=== PATIENT | female | born 1985 | race American Indian/Alaskan Native ===

== ENCOUNTER 2019-06-09 20:51 | Emergency (ER) | payer MEDICAID, OTHER ==
--- NOTE | 2019-06-09 21:14 | Event Note ---
Date: 06/09/19 Medical screening note: 33-year-old female with a history of asthma, possibly lupus, recently moved here from [place], was also apparently , presenting to the ER with multiple complaints Complaint #1, cough, wheezing, shortness of breath, called 911, given nebulizer therapy prior to arrival, lung sounds clear to auscultation bilaterally. Check EKG, x-ray the chest Complaint #2: Abdominal cramping, vaginal bleeding, probable miscarriage. Patient does not have a local TRAIN [employer]RAKEM[employer]. Has not had care. Has been taking Tylenol today with minimal improvement in symptoms. Abdomen soft benign, with no rebound, guarding or peritoneal signs. Check labs, type and screen, obtain transvaginal ultrasound, and reassess.
[2019-06-09 21:41] LABS: Basophils # (Auto) 0.1 K/mm3 (0.0-0.1); Eosinophils # (Auto) 0.1 K/mm3 (0.0-0.4); Eosinophils % (Auto) 2.4 % (0.0-4.3); Hemoglobin 13.7 gm/dl (10.1-14.3); Lymphocytes # (Auto) 1.4 K/mm3 (1.2-5.4); Lymphocytes % (Auto) 26.2 % (13.4-35.0); Mean Corpuscular HGB Conc 33 % (30-34); Mean Corpuscular Volume 93 fl (79-97); Monocytes # (Auto) 0.3 K/mm3 (0.0-0.8); Monocytes % (Auto) 6.1 % (0.0-7.3); Platelet Count 313 K/mm3 (140-440); Red Cell Distribution Width 13.3 % (13.2-15.2)
[2019-06-09 21:51] LABS: INR 0.95 (0.87-1.13)
[2019-06-09 22:02] LABS: BUN/Creatinine Ratio 16; Blood Urea Nitrogen 14 mg/dL (7-17); Hemolysis Index 51
--- NOTE | 2019-06-09 22:53 | Emergency Department Report ---
ED Shortness of Breath HPI - General Chief Complaint: Dyspnea/Respdistress Stated Complaint: ASTHMA Time Seen by Provider: 06/09/19 22:15 Source: patient Mode of arrival: Ambulatory Limitations: No Limitations - History of Present Illness Initial Comments: 33-year-old female with history of asthma presents to ED with complaint of asthma attack and possible miscarriage. Patient states she has run out of her inhaler, reports wheezing over the last couple of days with associated dry cough. Patient denies fever. Patient arrived via ambulance, albuterol nebs, Solu-Medrol, mag sulfate given. Patient states her dyspnea has resolved. She also reports she had a positive test at [facility] a few days ago. Patient states on yesterday she began to have cramping and spotting, mild vaginal bleeding. Patient states she had heavier cramping and vaginal bleeding today. She currently reports bleeding has stopped but cramping has continued. Complaint: "asthma attack" -: This evening Severity: moderate Consistency: now resolved Improves With: bronchodilators Worsens With: exertion Known History Of: asthma Associated Symptoms: cough Treatments Prior to Arrival: bronchodilator - Related Data Home Oxygen Therapy: No Previous Rx's Medication Instructions Recorded Last Taken Type Albuterol Sulfate [Proventil Hfa] 2 puff IH Q4HR PRN #1 hfa.aer.ad 06/10/19 Unknown Rx Naproxen [Naprosyn] 500 mg PO BID #20 tablet 06/10/19 Unknown Rx predniSONE [Deltasone] 50 mg PO QDAY #5 tab 06/10/19 Unknown Rx traMADoL [Ultram] 50 mg PO Q6HR PRN #7 tablet 06/10/19 Unknown Rx Allergies Allergy/AdvReac Type Severity Reaction Status Date / Time No Known Allergies Allergy Unverified 01/16/18 11:41 ED Review of Systems ROS: Stated complaint: ASTHMA Other details as noted in HPI Comment: All other systems reviewed and negative Constitutional: denies: chills, fever Respiratory: cough, wheezing Gastrointestinal: abdominal pain. denies: nausea, vomiting Genitourinary: abnormal menses ED Past Medical Hx - Past Medical History Previous Medical History?: Yes Hx Asthma: Yes Additional medical history: Lupus - Surgical History Past Surgical History?: No - Social History Smoking Status: Never Smoker Substance Use Type: None - Medications Home Medications: Home Medications Medication Instructions Recorded Confirmed Last Taken Type Albuterol Sulfate [Proventil Hfa] 2 puff IH Q4HR PRN #1 hfa.aer.ad 06/10/19 Unknown Rx Naproxen [Naprosyn] 500 mg PO BID #20 tablet 06/10/19 Unknown Rx predniSONE [Deltasone] 50 mg PO QDAY #5 tab 06/10/19 Unknown Rx traMADoL [Ultram] 50 mg PO Q6HR PRN #7 tablet 06/10/19 Unknown Rx ED Physical Exam - General Limitations: No Limitations General appearance: alert, in no apparent distress - Head Head exam: Present: atraumatic, normocephalic - Eye Eye exam: Present: normal appearance, EOMI - ENT ENT exam: Present: mucous membranes moist - Neck Neck exam: Present: normal inspection - Respiratory Respiratory exam: Present: normal lung sounds bilaterally. Absent: respiratory distress - Cardiovascular Cardiovascular Exam: Present: regular rate, normal rhythm - GI/Abdominal GI/Abdominal exam: Present: soft, tenderness (Mild suprapubic). Absent: diste nded - Extremities Exam Extremities exam: Present: normal inspection - Neurological Exam Neurological exam: Present: alert, oriented X3 - Psychiatric Psychiatric exam: Present: normal affect, normal mood - Skin Skin exam: Present: warm, dry, intact, normal color. Absent: rash ED Course Vital Signs 06/09/19 06/09/19 06/09/19 21:29 21:31 21:45 Pulse Rate 80 78 75 Respiratory 18 13 11 L Rate Blood Pressure 131/106 122/68 Blood Pressure 131/106 [Right] O2 Sat by Pulse 99 97 100 Oximetry 06/09/19 06/09/19 06/09/19 22:00 23:20 23:57 Pulse Rate 76 Respiratory 11 L 18 Rate Blood Pressure 122/68 146/78 Blood Pressure [Right] O2 Sat by Pulse 100 100 99 Oximetry 06/10/19 06/10/19 00:00 00:16 Pulse Rate Respiratory Rate Blood Pressure 135/71 135/71 Blood Pressure [Right] O2 Sat by Pulse 84 100 Oximetry ED Medical Decision Making - Lab Data Result diagrams: 06/09/19 21:28 06/09/19 21:28 Critical care attestation.: If time is entered above; I have spent that time in minutes in the direct care of this critically ill patient, excluding procedure time. ED Disposition Clinical Impression: Acute asthma exacerbation, Spontaneous miscarriage Disposition: TO HOME OR SELFCARE Is pt being admited?: No Condition: Stable Instructions: Asthma (ED), Spontaneous Miscarriage (ED) Referrals: PRIMARY CAREMD [Primary Care Provider] - 3-5 Days VENU TAPIA MD [Staff Physician] - 3-5 Days MARTIN MCKEON MD [Staff Physician] - 3-5 Days [facility] [Provider Group] - 3-5 Days Time of Disposition: 00:44
[2019-06-09] MEDS ORDERED: MORPHINE 2 MG/1 ML INJ IV ONE (23:00)
[2019-06-09] MEDS ORDERED: ONDANSETRON 4 MG/2 ML INJ IV ONE (23:00)
--- NOTE | 2019-06-09 23:03 | XRay Report ---
CHEST 2 VIEWS INDICATION / CLINICAL INFORMATION: dyspnea. COMPARISON: None available. FINDINGS: SUPPORT DEVICES: None. HEART / MEDIASTINUM: No significant abnormality. LUNGS / PLEURA: No significant pulmonary or pleural abnormality. No pneumothorax. ADDITIONAL FINDINGS: No significant additional findings. IMPRESSION: 1. No acute findings. No evidence for pneumonia or other acute pulmonary process. Signer Name: Leelee Cr MD Signed: 06/09/2019 10:59 PM Workstation Name: [id number]
--- NOTE | 2019-06-10 00:05 | Ultrasound Report ---
ULTRASOUND OBSTETRIC INDICATION / CLINICAL INFORMATION: miscarriage. Clinical Gestational Age (GA): 5 weeks 3 days TECHNIQUE: Transabdominal. Transvaginal COMPARISON: None available. FINDINGS: No gestational sac is identified within the uterus. The endometrial complex is mildly thickened measu ring 10 mm. The uterus is mildly enlarged measuring 9.8 x 5.3 x 5.9 cm. ADNEXA: Both ovaries are well-visualized and appear unremarkable. FREE FLUID: None. ADDITIONAL FINDINGS: None. IMPRESSION: 1. No evidence of IUP at this time. Signer Name: Leelee Cr MD Signed: 06/10/2019 12:00 AM Workstation Name: [id number]
[2019-06-10 00:18] LABS: Bilirubin,Urine NEG (Negative); Blood,Urine LG (Negative); Color,Urine Red (Yellow); Mucus,Urine FEW /HPF; Urobilinogen,Urine < 2.0 mg/dL (<2.0)
[2019-06-10 00:21] LABS: RBC,Urine > 182.0 /HPF (0.0-6.0)
[2019-06-10 00:25] VITALS: BP 135/71
[2019-06-10] MEDS ORDERED: KETOROLAC 30 MG/1 ML INJ IV ONE (00:39)
== END 2019-06-10 01:56 | disposition home or self-care (01) ==
LOC: ED 20:51
DX: O03.9 Complete or unspecified spontaneous abortion without complication (principal); O99.511 Diseases of the respiratory system complicating pregnancy, first trimester; J45.909 Unspecified asthma, uncomplicated; Z79.899 Other long term (current) drug therapy; Z3A.01 Less than 8 weeks gestation of pregnancy
CPT/HCPCS: 36415; 71046; 76801; 76817; 80048; 81001; 82550; 84702; 85025; 85610; 86900; 86901; 93005; 93010; 96374; 96375; 99284; J1885; J2270; J2405

== ENCOUNTER 2019-07-14 09:36 | Emergency (ER) | payer MEDICAID ==
[2019-07-14] MEDS ORDERED: diphenhydrAMINE 50 MG/ML VIAL IV ONE (10:28)
[2019-07-14] MEDS ORDERED: dexAMETHasone 20 MG/5 ML VIAL IV ONE (10:28)
[2019-07-14] MEDS ORDERED: ONDANSETRON 4 MG/2 ML INJ IV ONE (10:29)
[2019-07-14] MEDS ORDERED: MORPHINE 2 MG/1 ML INJ IV ONE ×2 (10:29→11:36)
--- NOTE | 2019-07-14 10:40 | Emergency Department Report ---
ED General Adult HPI - General Chief complaint: Medical Clearance Stated complaint: LUPUS FLARE UP Time Seen by Provider: 07/14/19 10:17 Source: patient Mode of arrival: Stretcher Limitations: No Limitations - History of Present Illness Initial comments: This is a 33-year-old female who is not in current treatment for lupus. She states this diagnosis was made in [place]. She states that she did not get her prescription for prednisone that was prescribed her last visit here in June for an exacerbation of asthma. This is because it causes "itching". She does not report any allergy to Decadron. She states that she was hospitalized in [place] and the diagnosis of lupus was made. She has had recurrent problems with her joints. She is not under the care of a project coordinator nor taking any medicines for lupus. When asked if the lupus has affected her kidneys in the past she states that it has caused a "kidney infection". The current "lupus flareup" was heralded by swelling in the right wrist and MCP joints. She states that it "moved up to my spine". She describes discomfort in her T-spine and her right shoulder area. She has had some swelling of her hands and wrist. She states this is typical of her lupus flareup. She denies fever or chills. She denies any problems urinating. She has not had any weakness numbness or paresthesias. She states again that she possibly could be although her test was negative in June. It appears that she does not follow-up physicians in general. In any case she is not reporting any other symptoms to include change in urine output, cough, shortness of breath, hea dache, diarrhea or vomiting but does report some nausea. She did not report an allergy to steroids apparently on her previous visit as she was prescribed prednisone. Patient states that when her lupus started to flare up about 3 days ago she "passed out. She states that she was coming home from the grocery store came into the house and had a brief loss of consciousness for seconds essentially. She was laid down on the couch by her roommates. She states this is typical for her to have weakness and an episode like this with her lupus flare. She denies ever being told that she had an alternative diagnosis for syncope. -: Gradual, days(s) Location: back, right, upper extremity Quality: aching Consistency: constant Improves with: none Worsens with: none Associated Symptoms: denies other symptoms, syncope. denies: confusion, chest pain, cough, fever/chills, headaches, loss of appetite, malaise, rash, seizure, shortness of breath, weakness - Related Data Previous Rx's Medication Instructions Recorded Last Taken Type Albuterol Sulfate [Proventil Hfa] 2 puff IH Q4HR PRN #1 hfa.aer.ad 06/10/19 Unknown Rx predniSONE [Deltasone] 50 mg PO QDAY #5 tab 06/10/19 Unknown Rx traMADoL [Ultram] 50 mg PO Q6HR PRN #7 tablet 06/10/19 Unknown Rx HYDROcodone/APAP 5-325 [[place] 1 each PO Q6HR PRN #10 tablet 07/14/19 Unknown Rx 5/325] Naproxen [Naprosyn TAB] 500 mg PO BID #20 tablet 07/14/19 Unknown Rx dexAMETHasone [Decadron] 2 mg PO BID #10 tablet 07/14/19 Unknown Rx Allergies Allergy/AdvReac Type Severity Reaction Status Date / Time prednisone Allergy Hives Verified 07/14/19 09:40 ED Review of Systems ROS: Stated complaint: LUPUS FLARE UP Other details as noted in HPI Constitutional: weakness. denies: chills, fever Eyes: denies: eye pain, eye discharge, vision change ENT: denies: ear pain, throat pain Respiratory: no symptoms reported. denies: cough, shortness of breath, wheezing Cardiovascular: syncope. denies: chest pain, palpitations Endocrine: no symptoms reported Gastrointestinal: nausea. denies: abdominal pain, diarrhea Genitourinary: denies: urgency, dysuria, discharge Musculoskeletal: as per HPI, back pain, joint swelling, arthralgia. denies: myalgia Skin: denies: rash, lesions Neurological: denies: headache, weakness, paresthesias Psychiatric: denies: anxiety, depression Hematological/Lymphatic: denies: easy bleeding, easy bruising ED Past Medical Hx - Past Medical History Previous Medical History?: Yes Hx Asthma: Yes Additional medical history: Lupus - Surgical History Additional Surgical History: - Social History Smoking Status: Never Smoker Substance Use Type: None - Medications Home Medications: Home Medications Medication Instructions Recorded Confirmed Last Taken Type Albuterol Sulfate [Proventil Hfa] 2 puff IH Q4HR PRN #1 hfa.aer.ad 06/10/19 Unknown Rx predniSONE [Deltasone] 50 mg PO QDAY #5 tab 06/10/19 Unknown Rx traMADoL [Ultram] 50 mg PO Q6HR PRN #7 tablet 06/10/19 Unknown Rx HYDROcodone/APAP 5-325 [[place] 1 each PO Q6HR PRN #10 tablet 07/14/19 Unknown Rx 5/325] Naproxen [Naprosyn TAB] 500 mg PO BID #20 tablet 07/14/19 Unknown Rx dexAMETHasone [Decadron] 2 mg PO BID #10 tablet 07/14/19 Unknown Rx ED Physical Exam - General Limitations: No Limitations, Altered Mental Status General appearance: obese - Head Head exam: Present: atraumatic, normocephalic - Eye Eye exam: Present: normal appearance. Absent: scleral icterus - ENT ENT exam: Present: mucous membranes moist - Neck Neck exam: Present: normal inspection. Absent: tenderness, meningismus - Respiratory Respiratory exam: Present: normal lung sounds bilaterally. Absent: respiratory distress - Cardiovascular Cardiovascular Exam: Present: regular rate, normal rhythm. Absent: systolic murmur, diastolic murmur, rubs, gallop - GI/Abdominal GI/Abdominal exam: Present: soft, normal bowel sounds. Absent: distended, tenderness, guarding, rebound, rigid - Extremities Exam Extremities exam: Present: tenderness, other (There is an apparent wrist effusion and swelling of the second and third MCP of the right hand. There is some tenderness on range of motion.). Absent: pedal edema, calf tenderness - Back Exam Back exam: Present: paraspinal tenderness (Mid to upper T-spine area). Absent: CVA tenderness (R), CVA tenderness (L), muscle spasm, vertebral tenderness - Neurological Exam Neurological exam: Present: alert, oriented X3, CN II-XII intact. Absent: motor sensory deficit - Psychiatric Psychiatric exam: Present: normal affect, normal mood - Skin Skin exam: Present: warm, dry, intact, normal color. Absent: rash ED Course Vital Signs 07/14/19 07/14/19 07/14/19 09:44 09:50 10:14 Temperature 98.5 F Pulse Rate 78 76 Respiratory 16 18 Rate Blood Pressure Blood Pressure 175/108 148/89 [Left] O2 Sat by Pulse 100 98 100 Oximetry 07/14/19 07/14/19 10:31 11:24 Temperature Pulse Rate 80 77 Respiratory 16 15 Rate Blood Pressure 148/89 Blood Pressure 141/115 [Left] O2 Sat by Pulse 99 100 Oximetry - Reevaluation(s) Reevaluation #1: Symptoms improved. 07/14/19 12:21 Reevaluation #2: There was no allergic reaction to Decadron. 07/14/19 12:23 ED Medical Decision Making - Lab Data Result diagrams: 07/14/19 10:47 07/14/19 10:47 Laboratory Results - last 24 hr 07/14/19 07/14/19 10:47 10:47 Sodium 139 Potassium 3.9 Chloride 104.1 Carbon Dioxide 20 L Anion Gap 19 BUN 16 Creatinine 0.6 L Estimated GFR > 60 BUN/Creatinine Ratio 27 Glucose 97 Lactic Acid 1.70 Calcium 8.7 Total Bilirubin 0.20 Direct Bilirubin < 0.2 Indirect Bilirubin 0.0 AST 15 ALT 12 Alkaline Phosphatase 84 Total Creatine Kinase 44 CK-MB (CK-2) < 1.0 C-Reactive Protein 0.30 Total Protein 7.4 Albumin 4.0 Albumin/Globulin Ratio 1.2 Laboratory Results - last 24 hr 07/14/19 07/14/19 07/14/19 10:47 10:47 10:47 WBC 7.0 RBC 4.36 Hgb 13.3 Hct 40.3 MCV 93 MCH 31 MCHC 33 RDW 13.5 Plt Count 278 PT INR APTT Sodium 139 Potassium 3.9 Chloride 104.1 Carbon Dioxide 20 L Anion Gap 19 BUN 16 Creatinine 0.6 L Estimated GFR > 60 BUN/Creatinine Ratio 27 Glucose 97 Lactic Acid Calcium 8.7 Total Bilirubin 0.20 Direct Bilirubin < 0.2 Indirect Bilirubin 0.0 AST 15 ALT 12 Alkaline Phosphatase 84 Total Creatine Kinase 44 CK-MB (CK-2) < 1.0 C-Reactive Protein 0.30 Total Protein 7.4 Albumin 4.0 Albumin/Globulin Ratio 1.2 HCG, Qual Negative Urine Color Urine Turbidity Urine pH Ur Specific [place] Urine Protein Urine Glucose (UA) Urine Ketones Urine Blood Urine Nitrite Urine Bilirubin Urine Urobilinogen Ur Leukocyte Esterase Urine WBC (Auto) Urine RBC (Auto) U Epithel Cells (Auto) Urine Mucus 07/14/19 07/14/19 07/14/19 10:47 10:47 Unknown WBC RBC Hgb Hct MCV MCH MCHC RDW Plt Count PT 13.1 INR 0.98 APTT 31.5 Sodium Potassium Chloride Carbon Dioxide Anion Gap BUN Creatinine Estimated GFR BUN/Creatinine Ratio Glucose Lactic Acid 1.70 Calcium Total Bilirubin Direct Bilirubin Indirect Bilirubin AST ALT Alkaline Phosphatase Total Creatine Kinase CK-MB (CK-2) C-Reactive Protein Total Protein Albumin Albumin/Globulin Ratio HCG, Qual Urine Color Yellow Urine Turbidity Clear Urine pH 6.0 Ur Specific [place] 1.019 Urine Protein <15 mg/dl Urine Glucose (UA) Neg Urine Ketones Neg Urine Blood Neg Urine Nitrite Neg Urine Bilirubin Neg Urine Urobilinogen < 2.0 Ur Leukocyte Esterase Neg Urine WBC (Auto) < 1.0 Urine RBC (Auto) < 1.0 U Epithel Cells (Auto) 2.0 Urine Mucus Few Laboratory Results - last 24 hr 07/14/19 07/14/19 07/14/19 10:47 10:47 10:47 WBC 7.0 RBC 4.36 Hgb 13.3 Hct 40.3 MCV 93 MCH 31 MCHC 33 RDW 13.5 Plt Count 278 ESR 9 PT INR APTT Sodium 139 Potassium 3.9 Chloride 104.1 Carbon Dioxide 20 L Anion Gap 19 BUN 16 Creatinine 0.6 L Estimated GFR > 60 BUN/Creatinine Ratio 27 Glucose 97 Lactic Acid Calcium 8.7 Total Bilirubin 0.20 Direct Bilirubin < 0.2 Indirect Bilirubin 0.0 AST 15 ALT 12 Alkaline Phosphatase 84 Total Creatine Kinase 44 CK-MB (CK-2) < 1.0 C-Reactive Protein 0.30 Total Protein 7.4 Albumin 4.0 Albumin/Globulin Ratio 1.2 HCG, Qual Negative Urine Color Urine Turbidity Urine pH Ur Specific [place] Urine Protein Urine Glucose (UA) Urine Ketones Urine Blood Urine Nitrite Urine Bilirubin Urine Urobilinogen Ur Leukocyte Esterase Urine WBC (Auto) Urine RBC (Auto) U Epithel Cells (Auto) Urine Mucus Urine Opiates Screen Urine Methadone Screen Ur Barbiturates Screen Ur Phencyclidine Scrn Ur Amphetamines Screen U Benzodiazepines Scrn 07/14/19 07/14/19 07/14/19 10:47 10:47 Unknown WBC RBC Hgb Hct MCV MCH MCHC RDW Plt Count ESR PT 13.1 INR 0.98 APTT 31.5 Sodium Potassium Chloride Carbon Dioxide Anion Gap BUN Creatinine Estimated GFR BUN/Creatinine Ratio Glucose Lactic Acid 1.70 Calcium Total Bilirubin Direct Bilirubin Indirect Bilirubin AST ALT Alkaline Phosphatase Total Creatine Kinase CK-MB (CK-2) C-Reactive Protein Total Protein Albumin Albumin/Globulin Ratio HCG, Qual Urine Color Yellow Urine Turbidity Clear Urine pH 6.0 Ur Specific [place] 1.019 Urine Protein <15 mg/dl Urine Glucose (UA) Neg Urine Ketones Neg Urine Blood Neg Urine Nitrite Neg Urine Bilirubin Neg Urine Urobilinogen < 2.0 Ur Leukocyte Esterase Neg Urine WBC (Auto) < 1.0 Urine RBC (Auto) < 1.0 U Epithel Cells (Auto) 2.0 Urine Mucus Few Urine Opiates Screen Urine Methadone Screen Ur Barbiturates Screen Ur Phencyclidine Scrn Ur Amphetamines Screen U Benzodiazepines Scrn 07/14/19 Unknown WBC RBC Hgb Hct MCV MCH MCHC RDW Plt Count ESR PT INR APTT Sodium Potassium Chloride Carbon Dioxide Anion Gap BUN Creatinine Estimated GFR BUN/Creatinine Ratio Glucose Lactic Acid Calcium Total Bilirubin Direct Bilirubin Indirect Bilirubin AST ALT Alkaline Phosphatase Total Creatine Kinase CK-MB (CK-2) C-Reactive Protein Total Protein Albumin Albumin/Globulin Ratio HCG, Qual Urine Color Urine Turbidity Urine pH Ur Specific [place] Urine Protein Urine Glucose (UA) Urine Ketones Urine Blood Urine Nitrite Urine Bilirubin Urine Urobilinogen Ur Leukocyte Esterase Urine WBC (Auto) Urine RBC (Auto) U Epithel Cells (Auto) Urine Mucus Urine Opiates Screen Presumptive negative Urine Methadone Screen Presumptive negative Ur Barbiturates Screen Presumptive negative Ur Phencyclidine Scrn Presumptive negative Ur Amphetamines Screen Presumptive negative U Benzodiazepines Scrn Presumptive negative - Medical Decision Making Recheck blood pressure 141/88. Patient told to monitor this. She admits no follow-up on her lupus or primary care since she has been here. She will be pl aced on a short course of Decadron and a nonsteroidal. She is referred to the [place] [facility]. There is no indication for hospitalization at this point. She will be given return criteria. Critical care attestation.: If time is entered above; I have spent that time in minutes in the direct care of this critically ill patient, excluding procedure time. ED Disposition Clinical Impression: SLE exacerbation Disposition: DC-01 TO HOME OR SELFCARE Is pt being admited?: No Does the pt Need Aspirin: No Condition: Stable Additional Instructions: Return to the emergency department any acute change or worsening symptoms. Rx as directed. Return any fever or chills as needed. [facility] with the [facility] is essential. See referral. Prescriptions: dexAMETHasone [Decadron] 2 mg PO BID #10 tablet Naproxen [Naprosyn TAB] 500 mg PO BID #20 tablet HYDROcodone/APAP 5-325 [[place] 5/325] 1 each PO Q6HR PRN #10 tablet PRN Reason: Pain Referrals: PRIMARY CARE, [Primary Care Provider] - 3-5 Days [facility] [Provider Group] - 2-3 Days Time of Disposition: 12:23
[2019-07-14] MEDS ORDERED: SODIUM CHLORIDE 0.9% 1000 ML 1,000 ML IV ONE (10:45)
[2019-07-14 11:21] LABS: Creatine Kinase MB < 1.0 ng/mL (0.0-4.0)
[2019-07-14 11:22] LABS: Alanine Aminotransferase 12 units/L (7-56); BUN/Creatinine Ratio 27; Blood Urea Nitrogen 16 mg/dL (7-17); Calcium 8.7 mg/dL (8.4-10.2); Hemolysis Index 7
[2019-07-14 11:29] LABS: Bilirubin,Direct < 0.2 mg/dL (0-0.2)
[2019-07-14 11:50] LABS: Hematocrit 40.3 % (30.3-42.9); Hemoglobin 13.3 gm/dl (10.1-14.3); Mean Corpuscular HGB Conc 33 % (30-34); Mean Corpuscular Volume 93 fl (79-97); Platelet Count 278 K/mm3 (140-440); Red Blood Count 4.36 M/mm3 (3.65-5.03); Red Cell Distribution Width 13.5 % (13.2-15.2)
[2019-07-14 11:57] LABS: INR 0.98 (0.87-1.13)
[2019-07-14 11:58] LABS: Partial Thromboplastin Time 31.5 Sec. (24.2-36.6)
[2019-07-14 12:03] LABS: Bilirubin,Urine NEG (Negative); Blood,Urine NEG (Negative); Color,Urine Yellow (Yellow); Mucus,Urine FEW /HPF; Protein,Urine <15 mg/dL mg/dL (Negative); RBC,Urine < 1.0 /HPF (0.0-6.0); Urobilinogen,Urine < 2.0 mg/dL (<2.0); WBC,Urine < 1.0 /HPF (0.0-6.0)
[2019-07-14 12:12] LABS: Amphetamine Screen,Urine PRESUMPTIVE NEGATIVE; Benzodiazepines Screen,Urine PRESUMPTIVE NEGATIVE; Methadone Screen,Urine PRESUMPTIVE NEGATIVE; Opiate Screen,Urine PRESUMPTIVE NEGATIVE
[2019-07-14 12:12] LABS: Erythrocyte Sedimentation Rate 9 mm/Hr (0-20)
[2019-07-14] MEDS ORDERED: HYDROcodone/ACETAMINOPHEN 5-325 MG TAB PO ONE (12:25)
[2019-07-14 12:27] LABS: Cannabinoid Screen,Urine PRESUMPTIVE POSITIVE; Cocaine Screen,Urine PRESUMPTIVE POSITIVE
[2019-07-14 12:43] VITALS: BP 147/94
== END 2019-07-14 12:44 | disposition home or self-care (01) ==
LOC: ED 09:36
DX: M32.9 Systemic lupus erythematosus, unspecified (principal); J45.909 Unspecified asthma, uncomplicated
CPT/HCPCS: 36415; 80048; 80076; 80307; 81001; 82140; 82550; 82553; 84703; 85027; 85610; 85652; 85730; 86140; 96374; 96375; 96376; 99284; J1100; J1200; J2270; J2405; J7030

== ENCOUNTER 2019-08-29 08:48 | Emergency (ER) | payer MEDICAID ==
--- NOTE | 2019-08-29 09:26 | Emergency Department Report ---
ED General Adult HPI - General Chief complaint: Pain General Stated complaint: LUPUS FLARE UP PUI?: No Time Seen by Provider: 08/29/19 09:11 Source: patient Mode of arrival: Wheelchair Limitations: No Limitations - History of Present Illness Initial comments: Ms. Stroud is a 34-year-old female with history of SLE and asthma who presents with "lupus flareup". She has pain in her "bones and joints". Pain is severe. Her lupus flare has been treated with steroids successfully in the past. 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 She has recently moved from [place]. Diagnosed with SLE 2 years ago. Gradual onset of pain. Denies fever. Denies cough. Denies shortness of breath. No history of kidney disease. Upon review of electronic medical record, in June and July CBC chemistry both within normal limits without anemia without kidney injury -: Gradual, days(s) (Several days) Location: left, right, upper extremity, lower extremity Quality: aching Consistency: constant Improves with: none Worsens with: none Associated Symptoms: denies other symptoms - Related Data Previous Rx's Medication Instructions Recorded Last Taken Type Albuterol Sulfate [Proventil Hfa] 2 puff IH Q4HR PRN #1 hfa.aer.ad 06/10/19 Unknown Rx predniSONE [Deltasone] 50 mg PO QDAY #5 tab 06/10/19 Unknown Rx traMADoL [Ultram] 50 mg PO Q6HR PRN #7 tablet 06/10/19 Unknown Rx HYDROcodone/APAP 5-325 [[place] 1 each PO Q6HR PRN #10 tablet 07/14/19 Unknown Rx 5/325] Naproxen [Naprosyn TAB] 500 mg PO BID #20 tablet 07/14/19 Unknown Rx dexAMETHasone [Decadron] 2 mg PO BID #10 tablet 07/14/19 Unknown Rx Albuterol INH(or & Nicu Only) 2 puff IH QID PRN #8.5 gram 08/29/19 Unknown Rx [ProAir HFA Inhaler] HYDROcodone/APAP 5-325 [[place] 1 each PO Q6HR PRN #10 tablet 08/29/19 Unknown Rx 5/325] methylPREDNISolone [Medrol 4MG 4 mg PO DAILY #1 tab.ds.pk 08/29/19 Unknown Rx DOSEPAK (21 tabs)] Allergies Allergy/AdvReac Type Severity Reaction Status Date / Time prednisone Allergy Hives Verified 07/14/19 09:40 ED Review of Systems ROS: Stated complaint: LUPUS FLARE UP Other details as noted in HPI Comment: All other systems reviewed and negative Constitutional: denies: fever, malaise Respiratory: denies: cough, shortness of breath Gastrointestinal: denies: abdominal pain, nausea, vomiting Musculoskeletal: myalgia ED Past Medical Hx - Past Medical History Previous Medical History?: Yes Hx Asthma: Yes Additional medical history: Lupus - Surgical History Past Surgical History?: Yes Additional Surgical History: - Social History Smoking Status: Never Smoker Substance Use Type: None - Medications Home Medications: Home Medications Medication Instructions Recorded Confirmed Last Taken Type Albuterol Sulfate [Proventil Hfa] 2 puff IH Q4HR PRN #1 hfa.aer.ad 06/10/19 Unknown Rx predniSONE [Deltasone] 50 mg PO QDAY #5 tab 06/10/19 Unknown Rx traMADoL [Ultram] 50 mg PO Q6HR PRN #7 tablet 06/10/19 Unknown Rx HYDROcodone/APAP 5-325 [[place] 1 each PO Q6HR PRN #10 tablet 07/14/19 Unknown Rx 5/325] Naproxen [Naprosyn TAB] 500 mg PO BID #20 tablet 07/14/19 Unknown Rx dexAMETHasone [Decadron] 2 mg PO BID #10 tablet 07/14/19 Unknown Rx Albuterol INH(or & Nicu Only) 2 puff IH QID PRN #8.5 gram 08/29/19 Unknown Rx [ProAir HFA Inhaler] HYDROcodone/APAP 5-325 [[place] 1 each PO Q6HR PRN #10 tablet 08/29/19 Unknown Rx 5/325] methylPREDNISolone [Medrol 4MG 4 mg PO DAILY #1 tab.ds.pk 08/29/19 Unknown Rx DOSEPAK (21 tabs)] ED Physical Exam - General Limitations: No Limitations General appearance: alert, in no apparent distress - Head Head exam: Present: atraumatic, normocephalic - Eye Eye exam: Present: normal appearance - ENT ENT exam: Present: mucous membranes moist - Neck Neck exam: Present: normal inspection, full ROM - Respiratory Respiratory exam: Present: normal lung sounds bilaterally. Absent: respiratory distress, wheezes, rales, rhonchi - Cardiovascular Cardiovascular Exam: Present: regular rate, normal rhythm, normal heart sounds. Absent: systolic murmur, diastolic murmur, rubs, gallop - GI/Abdominal GI/Abdominal exam: Present: soft. Absent: distended, tenderness, guarding, rebound - Extremities Exam Extremities exam: Present: normal inspection - Back Exam Back exam: Present: normal inspection - Neurological Exam Neurological exam: Present: alert, oriented X3 - Psychiatric Psychiatric exam: Present: normal affect, normal mood - Skin Skin exam: Present: warm, dry, intact, normal color. Absent: rash ED Course Vital Signs 08/29/19 09:03 Temperature 98.4 F Pulse Rate 82 Respiratory 20 Rate Blood Pressure 141/93 O2 Sat by Pulse 98 Oximetry - Reevaluation(s) Reevaluation #1: 08/29/19 09:56 Patient screamed out that she was having asthma attack after receiving medications. On examination she had expiratory wheezing. No urticaria. No tongue or lip swelling. 08/29/19 09:56 08/29/19 09:56 Benadryl albuterol Atrovent ordered. ED Medical Decision Making - Medical Decision Making 1. SLE exacerbation: Patient was treated with IV and p.o. pain medication as well as IV steroids. Prescribed Medrol Dosepak and [place] 2. Acute asthma exacerbation resolved after bronchodilator therapy. Prescribed albuterol MDI. Patient is new to the area from [place]. 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 Critical care attestation.: If time is entered above; I have spent that time in minutes in the direct care of this critically ill patient, excluding procedure time. ED Disposition Clinical Impression: SLE exacerbation, Acute asthma exacerbation Disposition: DC- TO HOME OR SELFCARE Is pt being admited?: No Does the pt Need Aspirin: No Condition: Stable Prescriptions: methylPREDNISolone [Medrol 4MG DOSEPAK (21 tabs)] 4 mg PO DAILY #1 tab.ds.pk HYDROcodone/APAP 5-325 [[place] 5/325] 1 each PO Q6HR PRN #10 tablet PRN Reason: Pain Albuterol INH(or & Nicu Only) [ProAir HFA Inhaler] 2 puff IH QID PRN #8.5 gram PRN Reason: Shortness Of Breath Referrals: MARTIN MCKEON MD [Staff Physician] - 3-5 Days
[2019-08-29] MEDS ORDERED: methylPREDNISolone Sod Succinate 125 MG/2 ML INJ IV ONE (09:27)
[2019-08-29] MEDS ORDERED: MORPHINE 4 MG/1 ML INJ IV ONE ×2 (09:27→12:15)
[2019-08-29] MEDS ORDERED: ONDANSETRON 4 MG/2 ML INJ IV ONE (09:27)
[2019-08-29] MEDS ORDERED: HYDROcodone/ACETAMINOPHEN 5-325 MG TAB PO ONE ×2 (09:27→12:15)
[2019-08-29] MEDS ORDERED: IPRATROPIUM 0.02% NEBU 2.5 ML IH ONE (09:55)
[2019-08-29] MEDS ORDERED: diphenhydrAMINE 50 MG/ML VIAL IV ONE (09:55)
[2019-08-29] MEDS ORDERED: ALBUTEROL 2.5 MG/3 ML NEBU IH ONE (09:55)
[2019-08-29] MEDS ORDERED: diphenhydrAMINE 50 MG/ML VIAL ONE (09:56)
[2019-08-29 13:52] VITALS: BP 111/78
== END 2019-08-29 13:52 | disposition home or self-care (01) ==
LOC: ED 08:48
DX: J45.901 Unspecified asthma with (acute) exacerbation (principal); M32.9 Systemic lupus erythematosus, unspecified; Z98.890 Other specified postprocedural states; Z79.899 Other long term (current) drug therapy; Z88.8 Allergy status to other drugs, medicaments and biological substances
CPT/HCPCS: 94640; 96374; 96375; 96376; 99282; J1200; J2270; J2405; J2930; 94644

== ENCOUNTER 2019-09-07 04:09 | Emergency (ER) | payer MEDICAID ==
[2019-09-07 05:10] LABS: Basophils % (Auto) 0.5 % (0.0-1.8); Eosinophils # (Auto) 0.1 K/mm3 (0.0-0.4); Eosinophils % (Auto) 1.3 % (0.0-4.3); Hematocrit 40.7 % (30.3-42.9); Hemoglobin 13.7 gm/dl (10.1-14.3); Lymphocytes # (Auto) 1.6 K/mm3 (1.2-5.4); Lymphocytes % (Auto) 18.2 % (13.4-35.0); Mean Corpuscular HGB Conc 34 % (30-34); Mean Corpuscular Volume 95 fl (79-97); Monocytes # (Auto) 0.6 K/mm3 (0.0-0.8); Monocytes % (Auto) 7.1 % (0.0-7.3); Platelet Count 316 K/mm3 (140-440); Red Blood Count 4.31 M/mm3 (3.65-5.03); Red Cell Distribution Width 12.3 % (13.2-15.2)
[2019-09-07 06:00] LABS: BUN/Creatinine Ratio 18; Blood Urea Nitrogen 16 mg/dL (7-17); Calcium 9.2 mg/dL (8.4-10.2); Hemolysis Index 101
--- NOTE | 2019-09-07 06:42 | XRay Report ---
CHEST 1 VIEW INDICATION / CLINICAL INFORMATION: Chest Pain. COMPARISON: None available. FINDINGS: SUPPORT DEVICES: None. HEART / MEDIASTINUM: No significant abnormality. LUNGS / PLEURA: No significant pulmonary or pleural abnormality. No pneumothorax. ADDITIONAL FINDINGS: No significant additional findings. IMPRESSION: 1. No acute findings. Signer Name: Jak Naranjo MD Signed: 09/07/2019 6:38 AM Workstation Name: [id number]
[2019-09-07] MEDS ORDERED: ONDANSETRON 4 MG/2 ML INJ IV ONE (07:12)
[2019-09-07] MEDS ORDERED: KETOROLAC 30 MG/1 ML INJ IV ONE (07:12)
[2019-09-07] MEDS ORDERED: fentaNYL 100 MCG/2 ML INJ IV ONE ×2 (07:12→09:22)
--- NOTE | 2019-09-07 07:18 | Emergency Department Report ---
HPI - General Chief Complaint: Pain General PUI?: No Time Seen by Provider: 09/07/19 07:03 - HPI HPI: Room 26 The patient is a 34-year-old female present with a chief complaint of lupus flareup/polyarthralgia. The patient states she presents to the emergency department secondary to having pain in all of her joints x1 day. The patient states yesterday morning she developed left-sided chest pain described as a sharpness that worsened when she takes a deep breath then. Patient states it lasted till 04: 00 this morning and then resolved. Patient currently denies chest pain. Patient gives her joint pain a score of 10/10. ED Past Medical Hx - Past Medical History Previous Medical History?: Yes Hx Hypertension: No (Borderline) Hx Asthma: Yes Additional medical history: Lupus - Surgical History Past Surgical History?: Yes Additional Surgical History: - Family History Family history: no significant - Social History Smoking Status: Never Smoker Substance Use Type: None (Denies illicit drug use) - Medications Home Medications: Home Medications Medication Instructions Recorded Confirmed Last Taken Type Albuterol Sulfate [Proventil Hfa] 2 puff IH Q4HR PRN #1 hfa.aer.ad 06/10/19 Unknown Rx predniSONE [Deltasone] 50 mg PO QDAY #5 tab 06/10/19 Unknown Rx traMADoL [Ultram] 50 mg PO Q6HR PRN #7 tablet 06/10/19 Unknown Rx HYDROcodone/APAP 5-325 [[place] 1 each PO Q6HR PRN #10 tablet 07/14/19 Unknown Rx 5/325] Naproxen [Naprosyn TAB] 500 mg PO BID #20 tablet 07/14/19 Unknown Rx dexAMETHasone [Decadron] 2 mg PO BID #10 tablet 07/14/19 Unknown Rx Albuterol INH(or & Nicu Only) 2 puff IH QID PRN #8.5 gram 08/29/19 Unknown Rx [ProAir HFA Inhaler] HYDROcodone/APAP 5-325 [[place] 1 each PO Q6HR PRN #10 tablet 08/29/19 Unknown Rx 5/325] methylPREDNISolone [Medrol 4MG 4 mg PO DAILY #1 tab.ds.pk 08/29/19 Unknown Rx DOSEPAK (21 tabs)] HYDROcodone/APAP 5-325 [[place] 1 - 2 each PO Q6HR PRN #14 tablet 09/07/19 Unknown Rx 5/325] Ibuprofen [Motrin 800 MG tab] 800 mg PO Q8HR PRN #20 tablet 09/07/19 Unknown Rx ED Review of Systems ROS: Stated complaint: LUPAS PAIN Other details as noted in HPI Constitutional: diaphoresis Respiratory: denies: shortness of breath Cardiovascular: chest pain Endocrine: no symptoms reported Gastrointestinal: nausea. denies: vomiting Musculoskeletal: back pain, arthralgia Physical Exam - Physical Exam Vital Signs: Vital Signs 09/07/19 04:13 Temperature 99.6 F Pulse Rate 87 Respiratory 20 Rate Blood Pressure 122/76 O2 Sat by Pulse 96 Oximetry Physical Exam: GENERAL: The patient is well-developed well-nourished female lying on stretcher appearing to be in mild discomfort. [] HEENT: Normocephalic. Atraumatic. Extraocular motions are intact. Patient has moist mucous membranes. NECK: Supple. Trachea midline CHEST/LUNGS: Clear to auscultation. There is no respiratory distress noted. HEART/CARDIOVASCULAR: Regular. There is no tachycardia. There is no gallop rub or murmur. ABDOMEN: Abdomen is soft, nontender. Patient has normal bowel sounds. There is no abdominal distention. SKIN: There is no rash. There is no edema. There is no diaphoresis. NEURO: The patient is awake, alert, and oriented. The patient is cooperative. The patient has normal speech MUSCULOSKELETAL: There is no evidence of acute injury. ED Course Vital Signs 09/07/19 04:13 Temperature 99.6 F Pulse Rate 87 Respiratory 20 Rate Blood Pressure 122/76 O2 Sat by Pulse 96 Oximetry ED Medical Decision Making - Lab Data Result diagrams: 09/07/19 04:25 09/07/19 04:25 Laboratory Tests 09/07/19 09/07/19 09/07/19 04:25 04:25 05:01 WBC 9.1 RBC 4.31 Hgb 13.7 Hct 40.7 MCV 95 MCH 32 MCHC 34 RDW 12.3 L Plt Count 316 Lymph % (Auto) 18.2 [place] % (Auto) 7.1 Eos % (Auto) 1.3 Baso % (Auto) 0.5 Lymph # 1.6 [place] # 0.6 Eos # 0.1 Baso # 0.0 Seg Neutrophils % 72.9 H Seg Neutrophils # 6.6 D-Dimer Sodium 136 L Potassium 4.3 Chloride 103.9 Carbon Dioxide 15 L Anion Gap 21 BUN 16 Creatinine 0.9 Estimated GFR > 60 BUN/Creatinine Ratio 18 Glucose 97 Calcium 9.2 Troponin T < 0.010 HCG, Qual Negative 09/07/19 09/07/19 09/07/19 07:50 07:50 10:20 WBC RBC Hgb Hct MCV MCH MCHC RDW Plt Count Lymph % (Auto) [place] % (Auto) Eos % (Auto) Baso % (Auto) Lymph # [place] # Eos # Baso # Seg Neutrophils % Seg Neutrophils # D-Dimer 271.11 H Sodium Potassium Chloride Carbon Dioxide Anion Gap BUN Creatinine Estimated GFR BUN/Creatinine Ratio Glucose Calcium Troponin T < 0.010 < 0.010 HCG, Qual - EKG Data -: EKG Interpreted by Me EKG shows normal: sinus rhythm Rate: normal - EKG Data When compared to previous EKG there are: previous EKG unavailable Interpretation: nonspecific ST-T wave krista (T wave inversion in lead III. No ischemic changes seen) - Radiology Data Radiology results: report reviewed (Chest x-ray, CT chest), image reviewed (Chest x-ray, CT chest) interpreted by me: Chest x-ray-no focal infiltrates, no pneumothorax Findings [facility] [address] [place] [address] XRay Report Signed Patient: MASON ORTIZ#: [id number] : 1985 Acct:[id number] Age/Sex: 34 / F ADM Date: 09/07/19 Loc: ED Attending Dr: Ordering Physician: ED MD CHARLA Date of Service: 09/07/19 Procedure(s): XR chest 1V ap Accession Number(s): [id number] cc: ED MD CHARLA Fluoro Time In Minutes: CHEST 1 VIEW INDICATION / CLINICAL INFORMATION: Chest Pain. COMPARISON: None available. FINDINGS: SUPPORT DEVICES: None. HEART / MEDIASTINUM: No significant abnormality. LUNGS / PLEURA: No significant pulmonary or pleural abnormality. No pneumothorax. ADDITIONAL FINDINGS: No significant additional findings. IMPRESSION: 1. No acute findings. Signer Name: Jak Naranjo MD Signed: 09/07/2019 6:38 AM Workstation Name: [id number] Transcribed By: Dictated By: Jak Naranjo MD Electronically Authenticated By: Jak Naranjo MD Signed Date/Time: 09/07/1938 DD/ 6 TD/TT: [facility] [address] [place] [id number] Cat Scan Report Signed Patient: MASON ORTIZ#: [id number] : 1985 Acct:[id number] Age/Sex: 34 / F ADM Date: 09/07/19 Loc: ED Attending Dr: Ordering Physician: AUNG NAILS MD Date of Service: 09/07/19 Procedure(s): CT angio chest Accession Number(s): [id number] cc: AUNG NAILS MD CTA CHEST WITH IV CONTRAST INDICATION / CLINICAL INFORMATION: Chest pain, ple urisy. TECHNIQUE: Axial CT images were obtained through the chest after injection of IV contrast. 3 plane MIP and/or 3D reconstructions were produced. All CT scans at this location are performed using CT dose reduction for [place]ARA by means of automated exposure control. COMPARISON: None available. FINDINGS: PULMONARY ARTERIES: No pulmonary emboli. THORACIC AORTA: No significant abnormality. HEART: No significant abnormality. CORONARY ARTERIES: No significant calcification. PLEURA: No pleural effusion. No pneumothorax. LYMPH NODES: No significant adenopathy. LUNGS: No acute air space or interstitial disease. ADDITIONAL FINDINGS: None. UPPER ABDOMEN: No acute findings. SKELETAL STRUCTURES: No significant osseous abnormality. IMPRESSION: 1. No CT evidence for pulmonary embolism. 2. No acute findings. Signer Name: Hany Mario MD Signed: 09/07/2019 11:55 AM Workstation Name: [id number] Transcribed By: WG Dictated By: Hany Mario MD Electronically Authenticated By: Hany Mario MD Signed Date/Time: 09/07/19 1155 DD/ 1153 TD/TT: - Differential Diagnosis Lupus flare, polyarthralgia, ACS, PE, pericarditis, GERD Critical care attestation.: If time is entered above; I have spent that time in minutes in the direct care of this critically ill patient, excluding procedure time. ED Disposition Clinical Impression: Polyarthralgia, SLE exacerbation Disposition: DC-01 TO HOME OR SELFCARE Is pt being admited?: No Does the pt Need Aspirin: No Condition: Stable Additional Instructions: Return to the emergency department should you develop worsening symptoms, inability to tolerate food or liquids, high fever or any other concerns Prescriptions: Ibuprofen [Motrin 800 MG tab] 800 mg PO Q8HR PRN #20 tablet PRN Reason: Pain, Moderate (4-6) HYDROcodone/APAP 5-325 [[place] 5/325] 1 - 2 each PO Q6HR PRN #14 tablet PRN Reason: Pain Referrals: PRIMARY CAREMD [Primary Care Provider] - 3-5 Days MARTIN MCKEON MD [Staff Physician] - 3-5 Days Time of Disposition: 12:41
[2019-09-07] MEDS ORDERED: HYDROcodone/ACETAMINOPHEN 5-325 MG TAB PO ONE (09:56)
[2019-09-07] MEDS ORDERED: SODIUM CHLORIDE 0.9% 1000 ML 1,000 ML ONE (11:33)
[2019-09-07] MEDS ORDERED: SODIUM CHLORIDE 0.9% 1000 ML 1,000 ML IV ONE (11:42)
--- NOTE | 2019-09-07 11:59 | Cat Scan Report ---
CTA CHEST WITH IV CONTRAST INDICATION / CLINICAL INFORMATION: Chest pain, pleurisy. TECHNIQUE: Axial CT images were obtained through the chest after injection of IV contrast. 3 plane MIP and/or 3D reconstructions were produced. All CT scans at this location are performed using CT dose reduction f or [place]ARA by means of automated exposure control. COMPARISON: None available. FINDINGS: PULMONARY ARTERIES: No pulmonary emboli. THORACIC AORTA: No significant abnormality. HEART: No significant abnormality. CORONARY ARTERIES: No significant calcification. PLEURA: No pleural effusion. No pneumothorax. LYMPH NODES: No significant adenopathy. LUNGS: No acute air space or interstitial disease. ADDITIONAL FINDINGS: None. UPPER ABDOMEN: No acute findings. SKELETAL STRUCTURES: No significant osseous abnormality. IMPRESSION: 1. No CT evidence for pulmonary embolism. 2. No acute findings. Signer Name: Hany Mario MD Signed: 09/07/2019 11:55 AM Workstation Name: [id number]
[2019-09-07 13:25] VITALS: BP 124/72
== END 2019-09-07 13:24 | disposition home or self-care (01) ==
LOC: ED 04:09
DX: M32.9 Systemic lupus erythematosus, unspecified (principal); M25.50 Pain in unspecified joint; R07.89 Other chest pain; I10 Essential (primary) hypertension; J45.909 Unspecified asthma, uncomplicated; Z98.890 Other specified postprocedural states; Z79.1 Long term (current) use of non-steroidal anti-inflammatories (NSAID); Z79.899 Other long term (current) drug therapy; Z88.8 Allergy status to other drugs, medicaments and biological substances
CPT/HCPCS: 36415; 71045; 71275; 80048; 84484; 84703; 85025; 85379; 93005; 96374; 96375; 96376; 99285; J1885; J2405; J3010; J7030; Q9967

== ENCOUNTER 2019-10-01 10:00 | Emergency (ER) | payer MEDICAID | END 2019-10-01 10:01 | disposition left against medical advice (07) | LOC: ED 10:00 | DX: Z53.21 Procedure and treatment not carried out due to patient leaving prior to being seen by health care provider (principal) ==

== ENCOUNTER 2020-03-23 12:50 | Emergency (ER) | payer MEDICAID ==
[2020-03-23 12:59] VITALS: BP 169/109
== END 2020-03-23 12:55 | disposition left against medical advice (07) ==
LOC: ED 12:50
DX: R20.0 Anesthesia of skin (principal); M79.601 Pain in right arm; M79.602 Pain in left arm; F41.9 Anxiety disorder, unspecified; Z53.21 Procedure and treatment not carried out due to patient leaving prior to being seen by health care provider

== ENCOUNTER 2020-11-22 13:32 | Emergency (ER) | payer MEDICAID ==
[2020-11-22 14:07] VITALS: BP 132/96
--- NOTE | 2020-11-28 10:24 | Electrocardiograph Report ---
[facility] Test Date: 2020-11-22 Test Time: 14:17:31 Pat Name: MASON ORTIZ Department: Room: Gender: F Screen Maker: JENNIFER : 1985 Requested By: BRIAN JOHNSON Order Number: [id number] Reading MD: Zi Roland Measurements Intervals [place] Rate: 71 P: 56 OR: 133 QRS: 54 QRSD: 72 T: 46 QT: 393 QTc: 429 Interpretive Statements Sinus rhythm No previous ECG available for comparison Electronically Signed On 11-28-2020 10:24:26 EDT by Zi Roland
== END 2020-11-22 15:06 ==
LOC: ED 13:32
DX: R07.89 Other chest pain (principal); Z53.21 Procedure and treatment not carried out due to patient leaving prior to being seen by health care provider
CPT/HCPCS: 93005

== ENCOUNTER 2020-12-12 15:58 | Emergency (ER) | payer MEDICAID ==
[2020-12-12 16:07] VITALS: BP 121/87
[2020-12-12] MEDS ORDERED: KETOROLAC 60 MG/2 ML INJ IM ONE (16:32)
[2020-12-12] MEDS ORDERED: dexAMETHasone 20 MG/5 ML VIAL IM ONE (16:32)
--- NOTE | 2020-12-12 16:54 | Emergency Department Report ---
ED General Adult HPI - General Chief complaint: Back Pain/Injury Stated complaint: LUPUS FLARE BONES SWOLLEN CANT STAND Time Seen by Provider: 12/12/20 16:27 Source: patient Mode of arrival: Ambulatory Limitations: No Limitations - History of Present Illness Initial comments: Patient is a 35-year-old female presents emergency room complaints of a lupus flare that began last night. She has associated back pain, diffuse joint pain, nausea, vomiting, diarrhea. She states that she typically gets these symptoms during her lupus flare. She denies any fever, shortness of breath, cough, chest pain, abdominal pain, urinary symptoms. She denies any known sick contacts or recent travel. She also has a past medical history of asthma. She states that she has an allergy to prednisone but reports that she is able to take other steroids. She states her last menstrual cycle was 11/21/2020. Severity scale (0 -10): 10 - Related Data Previous Rx's Medication Instructions Recorded Last Taken Type Albuterol Sulfate [Proventil Hfa] 2 puff IH Q4HR PRN #1 hfa.aer.ad 06/10/19 Unknown Rx predniSONE [Deltasone] 50 mg PO QDAY #5 tab 06/10/19 Unknown Rx traMADoL [Ultram] 50 mg PO Q6HR PRN #7 tablet 06/10/19 Unknown Rx HYDROcodone/APAP 5-325 [Marshall 1 each PO Q6HR PRN #10 tablet 07/14/19 Unknown Rx 5/325] Naproxen [Naprosyn TAB] 500 mg PO BID #20 tablet 07/14/19 Unknown Rx dexAMETHasone [Decadron] 2 mg PO BID #10 tablet 07/14/19 Unknown Rx Albuterol Mdi (or & Nicu Only) 2 puff IH QID PRN #8.5 gram 08/29/19 Unknown Rx [ProAir HFA Inhaler] HYDROcodone/APAP 5-325 [Marshall 1 each PO Q6HR PRN #10 tablet 08/29/19 Unknown Rx 5/325] methylPREDNISolone [Medrol 4MG 4 mg PO DAILY #1 tab.ds.pk 08/29/19 Unknown Rx DOSEPAK (21 tabs)] Ibuprofen [Motrin 800 MG tab] 800 mg PO Q8HR PRN #20 tablet 09/07/19 Unknown Rx oxyCODONE /ACETAMINOPHEN [Percocet 1 - 2 tab PO Q6HR PRN #7 tablet 09/07/19 Unknown Rx 5/325] Hyoscyamine Subl [Levsin Sl 0.125 0.125 mg SL Q6HR PRN #8 tab 12/12/20 Unknown Rx TAB] Ibuprofen [Motrin 600 MG tab] 600 mg PO Q8H PRN #20 tablet 12/12/20 Unknown Rx Ondansetron [Zofran Odt] 4 mg PO Q8HR PRN #10 tab.rapdis 12/12/20 Unknown Rx traMADoL [Ultram 50 MG tab] 50 mg PO Q6HR PRN #10 tablet 12/12/20 Unknown Rx Allergies Allergy/AdvReac Type Severity Reaction Status Date / Time prednisone Allergy Hives Verified 07/14/19 09:40 ED Review of Systems ROS: Stated complaint: LUPUS FLARE BONES SWOLLEN CANT STAND Other details as noted in HPI Comment: All other systems reviewed and negative ED Past Medical Hx - Past Medical History Previous Medical History?: Yes Hx Hypertension: No (Borderline) Hx Asthma: Yes Additional medical history: Lupus - Surgical History Past Surgical History?: Yes Additional Surgical History: - Social History Smoking Status: Never Smoker Substance Use Type: None (Denies illicit drug use) - Medications Home Medications: Home Medications Medication Instructions Recorded Confirmed Last Taken Type Albuterol Sulfate [Proventil Hfa] 2 puff IH Q4HR PRN #1 hfa.aer.ad 06/10/19 Unknown Rx predniSONE [Deltasone] 50 mg PO QDAY #5 tab 06/10/19 Unknown Rx traMADoL [Ultram] 50 mg PO Q6HR PRN #7 tablet 06/10/19 Unknown Rx HYDROcodone/APAP 5-325 [Marshall 1 each PO Q6HR PRN #10 tablet 07/14/19 Unknown Rx 5/325] Naproxen [Naprosyn TAB] 500 mg PO BID #20 tablet 07/14/19 Unknown Rx dexAMETHasone [Decadron] 2 mg PO BID #10 tablet 07/14/19 Unknown Rx Albuterol Mdi (or & Nicu Only) 2 puff IH QID PRN #8.5 gram 08/29/19 Unknown Rx [ProAir HFA Inhaler] HYDROcodone/APAP 5-325 [Marshall 1 each PO Q6HR PRN #10 tablet 08/29/19 Unknown Rx 5/325] methylPREDNISolone [Medrol 4MG 4 mg PO DAILY #1 tab.ds.pk 08/29/19 Unknown Rx DOSEPAK (21 tabs)] Ibuprofen [Motrin 800 MG tab] 800 mg PO Q8HR PRN #20 tablet 09/07/19 Unknown Rx oxyCODONE /ACETAMINOPHEN [Percocet 1 - 2 tab PO Q6HR PRN #7 tablet 09/07/19 Unknown Rx 5/325] Hyoscyamine Subl [Levsin Sl 0.125 0.125 mg SL Q6HR PRN #8 tab 12/12/20 Unknown Rx TAB] Ibuprofen [Motrin 600 MG tab] 600 mg PO Q8H PRN #20 tablet 12/12/20 Unknown Rx Ondansetron [Zofran Odt] 4 mg PO Q8HR PRN #10 tab.rapdis 12/12/20 Unknown Rx traMADoL [Ultram 50 MG tab] 50 mg PO Q6HR PRN #10 tablet 12/12/20 Unknown Rx ED Physical Exam - General Limitations: No Limitations General appearance: alert, in no apparent distress - Head Head exam: Present: atraumatic, normocephalic - Eye Eye exam: Present: normal appearance - ENT ENT exam: Present: mucous membranes moist - Neck Neck exam: Present: normal inspection, full ROM. Absent: tenderness, meningismus - Respiratory Respiratory exam: Present: normal lung sounds bilaterally. Absent: respiratory distress, wheezes, rales, rhonchi, stridor, chest wall tenderness, accessory muscle use, decreased breath sounds, prolonged expiratory - Cardiovascular Cardiovascular Exam: Present: regular rate, normal rhythm, normal heart sounds. Absent: systolic murmur, diastolic murmur, rubs, gallop - GI/Abdominal GI/Abdominal exam: Present: soft, normal bowel sounds. Absent: distended, tenderness, guarding, rebound, rigid - Extremities Exam Extremities exam: Present: other (mild diffuse ttp of the joints in the BLE/BUE, no edema, no erythema, no increased warmth, neurovascularly intact throughotu) - Back Exam Back exam: Present: normal inspection, full ROM, paraspinal tenderness (bila teral T-spine and L-spine ttp, no step offs, no deformities, no midline ttp). Absent: vertebral tenderness - Neurological Exam Neurological exam: Present: alert, oriented X3 - Psychiatric Psychiatric exam: Present: normal affect, normal mood - Skin Skin exam: Present: warm, dry, intact ED Course Vital Signs 12/12/20 16:05 Temperature 98.8 F Pulse Rate 89 Respiratory 18 Rate Blood Pressure 121/87 [Right] O2 Sat by Pulse 99 Oximetry ED Medical Decision Making - Lab Data Result diagrams: 12/12/20 16:37 12/12/20 16:37 Lab Results 12/12/20 12/12/20 12/12/20 Range/Units 16:37 16:37 16:37 WBC 7.6 (4.5-11.0) K/mm3 RBC 4.08 (3.65-5.03) M/mm3 Hgb 12.8 (10.1-14.3) gm/dl Hct 38.4 (30.3-42.9) % MCV 94 (79-97) fl MCH 32 (28-32) pg MCHC 33 (30-34) % RDW 11.8 L (13.2-15.2) % Plt Count 287 (140-440) K/mm3 Lymph % (Auto) 14.9 (13.4-35.0) % [place] % (Auto) 5.2 (0.0-7.3) % Eos % (Auto) 0.3 (0.0-4.3) % Baso % (Auto) 0.5 (0.0-1.8) % Lymph # (Auto) 1.1 L (1.2-5.4) K/mm3 [place] # (Auto) 0.4 (0.0-0.8) K/mm3 Eos # (Auto) 0.0 (0.0-0.4) K/mm3 Baso # (Auto) 0.0 (0.0-0.1) K/mm3 Seg Neutrophils % 79.1 H (40.0-70.0) % Seg Neutrophils # 6.0 (1.8-7.7) K/mm3 Sodium 137 (137-145) mmol/L Potassium 3.5 L (3.6-5.0) mmol/L Chloride 103.8 (98-107) mmol/L Carbon Dioxide 23 (22-30) mmol/L Anion Gap 14 mmol/L BUN 10 (7-17) mg/dL Creatinine 0.6 (0.6-1.2) mg/dL Estimated GFR > 60 ml/min BUN/Creatinine Ratio 17 % Glucose 99 (65-100) mg/dL Calcium 8.8 (8.4-10.2) mg/dL Total Bilirubin 0.30 (0.1-1.2) mg/dL AST 13 (5-40) units/L ALT 9 (7-56) units/L Alkaline Phosphatase 82 (35-129) units/L Total Protein 6.9 (6.3-8.2) g/dL Albumin 3.8 L (3.9-5) g/dL Albumin/Globulin Ratio 1.2 % Lipase 16 (13-60) units/L HCG, Qual Negative (Negative) - Medical Decision Making Patient is a 35-year-old female presents emergency room complaints of a lupus flare that began last night. She has associated back pain, diffuse joint pain, nausea, vomiting, diarrhea. She states that she typically gets these symptoms during her lupus flare. She denies any fever, shortness of breath, cough, chest pain, abdominal pain, urinary symptoms. She denies any known sick contacts or recent travel. She also has a past medical history of asthma. She states that she has an allergy to prednisone but reports that she is able to take other steroids. She states her last menstrual cycle was 11/21/2020. vitals are normal. on exam: mild diffuse ttp of the joints in the BLE/BUE, no edema, no erythema, no increased warmth, neurovascularly intact throughout, bilateral T-spine and L- spine ttp, no step offs, no deformities, no midline ttp, no step-offs, no deformities, no focal neuro deficits. Labs are stable. Patient given medications while in the emergency room. She was able to tolerate p.o. intake. Patient states that this is typical of her previous flares. Patient has had no acute trauma, she has no focal neuro deficits, she has no leukocytosis, no clinical signs of infection. Patient given prescription for medications. Advised patient Please take medication as prescribed. Increase your fluid intake. Follow-up with a primary care doctor. Return to emergency room for any new or worsening symptoms. Critical care attestation.: If time is entered above; I have spent that time in minutes in the direct care of this critically ill patient, excluding procedure time. ED Disposition Clinical Impression: Lupus, Nausea vomiting and diarrhea Back pain Qualifiers: Back pain location: low back pain Chronicity: acute Back pain laterality: bilateral Sciatica presence: without sciatica Qualified Code(s): M54.5 - Low back pain Joint pain Qualifiers: Joint pain location: unspecified Qualified Code(s): M25.50 - Pain in unspecified joint Disposition: 01 HOME / SELF CARE / HOMELESS Is pt being admited?: No Does the pt Need Aspirin: No Condition: Stable Instructions: Systemic Lupus Erythematosus, Adult Additional Instructions: Please take medication as prescribed. Increase your fluid intake. Follow-up with a primary care doctor. Return to emergency room for any new or worsening symptoms. Prescriptions: Hyoscyamine Subl [Levsin Sl 0.125 TAB] 0.125 mg SL Q6HR PRN #8 tab PRN Reason: diarrhea Ibuprofen [Motrin 600 MG tab] 600 mg PO Q8H PRN #20 tablet PRN Reason: Pain traMADoL [Ultram 50 MG tab] 50 mg PO Q6HR PRN #10 tablet PRN Reason: Pain , Severe (7-10) Ondansetron [Zofran Odt] 4 mg PO Q8HR PRN #10 tab.rapdis PRN Reason: vomiting Referrals: MARTIN MCKEON MD [Staff Physician] - 3-5 Days [facility] [Provider Group] - 3-5 Days ARELY PASCAL MD [Staff Physician] - 3-5 Days Time of Disposition: 17:39 Print Language: SOUTH KOREAN
[2020-12-12 16:57] LABS: Basophils % (Auto) 0.5 % (0.0-1.8); Eosinophils % (Auto) 0.3 % (0.0-4.3); Hematocrit 38.4 % (30.3-42.9); Hemoglobin 12.8 gm/dl (10.1-14.3); Lymphocytes # (Auto) 1.1 K/mm3 (1.2-5.4); Lymphocytes % (Auto) 14.9 % (13.4-35.0); Mean Corpuscular HGB Conc 33 % (30-34); Mean Corpuscular Volume 94 fl (79-97); Monocytes # (Auto) 0.4 K/mm3 (0.0-0.8); Monocytes % (Auto) 5.2 % (0.0-7.3); Platelet Count 287 K/mm3 (140-440); Red Blood Count 4.08 M/mm3 (3.65-5.03); Red Cell Distribution Width 11.8 % (13.2-15.2)
[2020-12-12 17:13] LABS: Alanine Aminotransferase 9 units/L (7-56); Albumin 3.8 g/dL (3.9-5); Blood Urea Nitrogen 10 mg/dL (7-17); Calcium 8.8 mg/dL (8.4-10.2); Hemolysis Index 5
[2020-12-12 17:29] LABS: BUN/Creatinine Ratio 17
[2020-12-12] MEDS ORDERED: oxyCODONE /ACETAMINOPHEN 5-325MG TAB PO ONE (17:37)
[2020-12-12] MEDS ORDERED: ONDANSETRON 4 MG ODT TAB PO ONE (17:37)
== END 2020-12-12 18:31 | disposition home or self-care (01) ==
LOC: ED 15:58
DX: M32.9 Systemic lupus erythematosus, unspecified (principal); M54.9 Dorsalgia, unspecified; M25.50 Pain in unspecified joint; R11.2 Nausea with vomiting, unspecified; R19.7 Diarrhea, unspecified; J45.909 Unspecified asthma, uncomplicated; R03.0 Elevated blood-pressure reading, without diagnosis of hypertension; Z98.890 Other specified postprocedural states; Z88.8 Allergy status to other drugs, medicaments and biological substances
CPT/HCPCS: 36415; 80053; 83690; 84703; 85025; 96372; 99283; J1100; J1885; Q0162

== ENCOUNTER 2021-01-24 13:28 | Emergency (ER) | payer MEDICAID ==
[2021-01-24] MEDS ORDERED: ONDANSETRON 4 MG/2 ML INJ IV ONE (14:16)
[2021-01-24] MEDS ORDERED: MORPHINE 4 MG/1 ML INJ IV ONE (14:16)
[2021-01-24] MEDS ORDERED: SODIUM CHLORIDE 0.9% 1000 ML 2,000 ML IV ONE (14:16)
[2021-01-24] MEDS ORDERED: dexAMETHasone 20 MG/5 ML VIAL IV ONE (14:18)
--- NOTE | 2021-01-24 14:19 | Emergency Department Report ---
ED General Adult HPI - General Chief complaint: Pain General Stated complaint: LUPUS Time Seen by Provider: 01/24/21 13:54 Source: patient Mode of arrival: Ambulatory Limitations: Physical Limitation - History of Present Illness Initial comments: 35-year-old female presents to the ER today with complaints of flareup to her lupus. Patient states that her lupus flared up this morning. She states that she noticed that her lupus has flared up because she is having pain in all her bones, including her spine and she states that her right side of her body is locked up. She also has been vomiting several times since this morning. She denies any fever or chills. She denies any abdominal pain, diarrhea, UTI symptoms, cough, shortness of breath, wheezing, sore throat or any additional symptoms. She states that she is on ibuprofen and hydrochloric when for her lupus. These are prescribed by her primary care doctor at [facility]. She does not currently have a gastroenterology teacher. She states that lately she has been having a flareup of her lupus every month. She states that the last time she was admitted at [facility] for lupus was sometime last year and is because she went into renal failure. She does admit that she was drinking alcohol last night but she states that she only had 2 glasses of mixed drinks. She denies any illicit drug use. Other than the lupus she denies any other significant past medical history. MD Complaint: LUPUS FLARE UP/BODY PAIN -: Sudden Severity scale (0 -10): 6 - Related Data Previous Rx's Medication Instructions Recorded Last Taken Type Albuterol Sulfate [Proventil Hfa] 2 puff IH Q4HR PRN #1 hfa.aer.ad 06/10/19 Unknown Rx Albuterol Mdi (or & Nicu Only) 2 puff IH QID PRN #8.5 gram 08/29/19 Unknown Rx [ProAir HFA Inhaler] Hyoscyamine Subl [Levsin Sl 0.125 0.125 mg SL Q6HR PRN #8 tab 12/12/20 Unknown Rx TAB] Ondansetron [Zofran ODT TAB] 4 mg PO Q8HR PRN #10 tab.rapdis 01/24/21 Unknown Rx methylPREDNISolone [Medrol 4MG 4 mg PO DAILY #1 tab.ds.pk 01/24/21 Unknown Rx DOSEPAK (21 tabs)] oxyCODONE /ACETAMINOPHEN [Percocet 1 - 2 tab PO Q6HR PRN #7 tablet 01/24/21 Unknown Rx 5/325 mg] Allergies Allergy/AdvReac Type Severity Reaction Status Date / Time prednisone Allergy Hives Verified 01/24/21 17:22 ED Review of Systems ROS: Stated complaint: LUPUS Other details as noted in HPI ED Past Medical Hx - Past Medical History Previous Medical History?: Yes Hx Hypertension: No (Borderline) Hx Asthma: Yes Additional medical history: Lupus - Surgical History Past Surgical History?: Yes Additional Surgical History: - Social History Smoking Status: Never Smoker Substance Use Type: None (Denies illicit drug use) - Medications Home Medications: Home Medications Medication Instructions Recorded Confirmed Last Taken Type Albuterol Sulfate [Proventil Hfa] 2 puff IH Q4HR PRN #1 hfa.aer.ad 06/10/19 Unknown Rx Albuterol Mdi (or & Nicu Only) 2 puff IH QID PRN #8.5 gram 08/29/19 Unknown Rx [ProAir HFA Inhaler] Hyoscyamine Subl [Levsin Sl 0.125 0.125 mg SL Q6HR PRN #8 tab 12/12/20 Unknown Rx TAB] Ondansetron [Zofran ODT TAB] 4 mg PO Q8HR PRN #10 tab.rapdis 01/24/21 Unknown Rx methylPREDNISolone [Medrol 4MG 4 mg PO DAILY #1 tab.ds.pk 01/24/21 Unknown Rx DOSEPAK (21 tabs)] oxyCODONE /ACETAMINOPHEN [Percocet 1 - 2 tab PO Q6HR PRN #7 tablet 01/24/21 Unknown Rx 5/325 mg] ED Physical Exam - General Limitations: Physical Limitation General appearance: alert, in distress, other (Patient appears uncomfortable, in any pain, and actively vomiting in the room) - Head Head exam: Present: atraumatic, normocephalic, normal inspection - Eye Eye exam: Present: normal appearance, PERRL, EOMI Pupils: Present: normal accommodation - ENT ENT exam: Present: normal exam, mucous membranes dry - Neck Neck exam: Present: normal inspection, full ROM - Respiratory Respiratory exam: Present: normal lung sounds bilaterally. Absent: respiratory distress, wheezes, rales, rhonchi, stridor - Cardiovascular Cardiovascular Exam: Present: regular rate, normal rhythm, normal heart sounds - Extremities Exam Extremities exam: Present: other (She does have tenderness to palpation diffusely to her right upper extremity and right lower extremity but there is mild swelling noted about the right wrist, fingers and hands. Pulses bilateral upper extremities equal bilaterally. Sensation intact. Patient is able to move extremities but painful) - Neurological Exam Neurological exam: Present: alert, oriented X3, CN II-XII intact, normal gait - Psychiatric Psychiatric exam: Present: normal affect, normal mood - Skin Skin exam: Present: intact ED Course Vital Signs 01/24/21 01/24/21 01/24/21 13:39 15:37 15:45 Temperature 98.2 F Pulse Rate 82 68 Respiratory 20 Rate Blood Pressure 150/92 136/67 [Right] O2 Sat by Pulse 99 97 Oximetry 01/24/21 17:20 Temperature Pulse Rate 74 Respiratory 17 Rate Blood Pressure 120/91 [Right] O2 Sat by Pulse 97 Oximetry ED Medical Decision Making - Lab Data Result diagrams: 01/24/21 14:37 01/24/21 14:37 - Medical Decision Making All labs reviewed and unremarkable. Patient repeat vital signs have been stable. Patiently currently resting comfortably in the room,and she is currently on her phone. She received IV morphine, Zofran, IV Decadron fluids. She appears to be feeling better, and she does admit to feeling better than when she first came in but she states that she still continues to have back pain. Patient's back exam is unremarkable. She has no saddle anesthesia, no bowel or bladder incontinence, she is ambulatory in the ER. She is currently not toxic or ill- appearing. She has not had any more vomiting since the Zofran. I did order urinalysis, but patient reported that she had just urinated and is unable to give another urine sample and she stated that she does not believe she has a UTI because she is not having symptoms. Informed patient that all her labs are normal and her vital signs are stable. Informed patient at this time that there is no indication for admission to the hospital and we will discharge her home with pain meds and steroids and have her follow-up with her PCP. Patient then stated that she is not comfortable going home, because she has nowhere to go and would rather be admitted. Informed patient that she appears well, vital signs are stable, lab work does not show anything acute, therefore there is no ind ication for admission to the hospital. Informed patient of treatment plan, and recommend that she follows up with her PCP and she can discuss with her PCP referral to rheumatology to better control her lupus. Patient then expressed understanding of instructions and agree with plan. Patient was stable at time of discharge. - Differential Diagnosis Dehydration, renal failure, metabolic abnormality, Critical care attestation.: If time is entered above; I have spent that time in minutes in the direct care of this critically ill patient, excluding procedure time. ED Disposition Clinical Impression: Lupus, Arthralgia, Vomiting Disposition: HOME / SELF CARE / HOMELESS Is pt being admited?: No Does the pt Need Aspirin: No Condition: Stable Instructions: Systemic Lupus Erythematosus, Adult, Nausea and Vomiting, Adult, [id number], Joint Pain, [id number] Additional Instructions: I recommend that you take the Percocet, and the Medrol Dosepak as prescribed. Continue to hydrate by drinking lots of fluids. Take the Zofran as prescribed to help with any nausea or vomiting. I do recommend following up with your primary care doctor next week, and discussing with your primary care doctor about referring you to a gastroenterology teacher to better control your lupus. Return to the ER if at any point your symptoms worsens or changes. Prescriptions: methylPREDNISolone [Medrol 4MG DOSEPAK (21 tabs)] 4 mg PO DAILY #1 tab.ds.pk oxyCODONE /ACETAMINOPHEN [Percocet 5/325 mg] 1 - 2 tab PO Q6HR PRN #7 tablet PRN Reason: Pain Ondansetron [Zofran ODT TAB] 4 mg PO Q8HR PRN #10 tab.rapdis PRN Reason: vomiting Referrals: PRIMARY MD DEJON [Primary Care Provider] - 3-5 Days MARTIN MCKEON MD [Staff Physician] - 3-5 Days [facility] [Provider Group] - 3-5 Days Forms: Work/School Release Form(ED) Time of Disposition: 17:56 Print Language: KINYARWANDA
[2021-01-24 14:54] LABS: Basophils # (Auto) 0.1 K/mm3 (0.0-0.1); Eosinophils # (Auto) 0.1 K/mm3 (0.0-0.4); Hematocrit 36.2 % (30.3-42.9); Hemoglobin 12.3 gm/dl (10.1-14.3); Lymphocytes # (Auto) 1.2 K/mm3 (1.2-5.4); Lymphocytes % (Auto) 20.8 % (13.4-35.0); Mean Corpuscular HGB Conc 34 % (30-34); Mean Corpuscular Volume 94 fl (79-97); Monocytes # (Auto) 0.4 K/mm3 (0.0-0.8); Monocytes % (Auto) 7.3 % (0.0-7.3); Platelet Count 285 K/mm3 (140-440); Red Blood Count 3.87 M/mm3 (3.65-5.03); Red Cell Distribution Width 11.6 % (13.2-15.2)
[2021-01-24 15:11] LABS: Alanine Aminotransferase 10 units/L (7-56); Albumin 3.8 g/dL (3.9-5); Blood Urea Nitrogen 8 mg/dL (7-17); Calcium 8.2 mg/dL (8.4-10.2); Hemolysis Index 6
[2021-01-24 15:12] LABS: BUN/Creatinine Ratio 13
[2021-01-24 17:24] VITALS: BP 120/91
[2021-01-24] MEDS ORDERED: oxyCODONE /ACETAMINOPHEN 5-325MG TAB PO ONE (17:27)
== END 2021-01-24 18:43 | disposition home or self-care (01) ==
LOC: ED 13:28
DX: M32.9 Systemic lupus erythematosus, unspecified (principal); R11.10 Vomiting, unspecified; M25.50 Pain in unspecified joint; J45.909 Unspecified asthma, uncomplicated; Z98.890 Other specified postprocedural states; Z88.8 Allergy status to other drugs, medicaments and biological substances
CPT/HCPCS: 36415; 80053; 83690; 83735; 84703; 85025; 96361; 96374; 96375; 99283; J1100; J2270; J2405; J7030

== ENCOUNTER 2021-04-09 05:13 | Emergency (ER) | payer MEDICAID ==
[2021-04-09 08:53] LABS: Basophils # (Auto) 0.1 K/mm3 (0.0-0.1); Hematocrit 39.3 % (30.3-42.9); Hemoglobin 12.9 gm/dl (10.1-14.3); Lymphocytes # (Auto) 1.2 K/mm3 (1.2-5.4); Lymphocytes % (Auto) 19.6 % (13.4-35.0); Mean Corpuscular HGB Conc 33 % (30-34); Mean Corpuscular Volume 95 fl (79-97); Monocytes % (Auto) 8.3 % (0.0-7.3); Platelet Count 323 K/mm3 (140-440); Red Blood Count 4.12 M/mm3 (3.65-5.03)
[2021-04-09 09:03] LABS: Blood Urea Nitrogen 8 mg/dL (7-17); Calcium 9.5 mg/dL (8.4-10.2); Hemolysis Index 3
[2021-04-09 09:12] LABS: BUN/Creatinine Ratio 11
--- NOTE | 2021-04-09 09:37 | Consultation ---
History of Present Illness - Reason for Consult Consult date: 04/09/21 Reason for consult: psychosis - History of Present Psychiatric Illness The patient was seen today. She is known to me from a recent visit. She is manic. The patient is delusional and bizarre. She is singing and talking loudly. The patient says "I'm crazy and been running around with no sleep." She says "my kids father came to destroy everything I had. They sent him to destroy me." The patient says she hasn't seen a psychiatrist in a long time, but states "every time I'm at peace they send someone to destroy me." When asking the patient was she SI/HI. She says "I brought myself here to keep from doing either one of those." She denies hallucinations of any kind. PAST PSYCHIATRIC HISTORY: Diagnose: Borderline personality disorder Suicide attempts or Self-harm behavior: Yes Prior psychiatric hospitalizations: Yes Substance Abuse history: Cocaine Previous psychiatric medications tried: could not recall Outpatient treatment: Unknown PAST MEDICAL HISTORY: unknown Family Psychiatric History: None reported or documented SOCIAL HISTORY Marital Status: Living Arrangements: Employment Status: Self employed Access to guns/weapons: Denies Education: History of Abuse: Denies Legal History: Denies REVIEW OF SYSTEMS Constitutional: Negative for weight loss ENT: Negative for stridor Respiratory: Negative for cough or hemoptysis All other systems reviewed and are negative MENTAL STATUS EXAMINATION General Appearance and Behavior: Age appropriate, good hygiene, wearing appropriate clothes. cooperative Cooperation: Cooperative Psychomotor Behavior: Psychomotor normal Mood: elevated Affect and affective range: laughing inappropriately Thought Process: illogical Thought Content: delusions Speech: loud Suicidal Ideation: Yes Homicidal Ideation: Yes Hallucinations: Denies Delusions: None elicited Impulse Control: Poor Insight and Judgment: Limited insight and poor judgment Memory: Limited Attention: attentive Orientation: a/o x 3 Assessment (1) Psychosis Treatment Plan 1013 Olanzapine 5mg po daily Depakote DR 125mg po BID Trazodone 50mg po qhs Sitter: per primary Medical: per primary Disposition: Recommend acute psychiatric inpatient treatment Will follow. Thanks Case staffed with Dr. Lion Medications and Allergies Allergies Allergy/AdvReac Type Severity Reaction Status Date / Time prednisone Allergy Hives Verified 03/23/21 20:15 Home Medications Medication Instructions Recorded Confirmed Last Taken Type Albuterol Sulfate [Proventil Hfa] 2 puff IH Q4HR PRN #1 hfa.aer.ad 06/10/19 03/25/21 4 Weeks Ago Rx ~02/25/21 Hydroxychloroquine [Plaquenil] 200 mg PO BID 03/25/21 03/25/21 03/24/21 History Ibuprofen [Motrin 800 MG tab] 800 mg PO Q8HR PRN 7 Days #21 03/25/21 Unknown Rx tablet oxyCODONE /ACETAMINOPHEN [Percocet 2 tab PO Q6H PRN 5 Days #40 tablet 03/25/21 Unknown Rx 5/325 mg] Mental Status Exam - Vital signs Last Vital Signs Temp 98.1 F 04/09/21 05:18 Pulse 98 H 04/09/21 05:18 Resp 16 04/09/21 05:18 BP 125/90 04/09/21 05:18 Pulse Ox 100 04/09/21 05:18 Results Result Diagrams: 04/09/21 08:25 04/09/21 08:25 Abnormal lab results 04/09/21 04/09/21 04/09/21 Range/Units 08:25 08:25 08:25 RDW 12.0 L (13.2-15.2) % [place] % (Auto) 8.3 H (0.0-7.3) % Seg Neutrophils % 70.2 H (40.0-70.0) % Potassium 3.5 L (3.6-5.0) mmol/L Salicylates < 0.3 L (2.8-20.0) mg/dL Acetaminophen (10.0-30.0) ug/mL 04/09/21 Range/Units 08:25 RDW (13.2-15.2) % [place]oke % (Auto) (0.0-7.3) % Seg Neutrophils % (40.0-70.0) % Potassium (3.6-5.0) mmol/L Salicylates (2.8-20.0) mg/dL Acetaminophen 5.0 L (10.0-30.0) ug/mL All other labs normal.
[2021-04-09] MEDS ORDERED: IBUPROFEN 800 MG TAB PO ONE (09:53)
[2021-04-09] MEDS: DIVALPROEX DR 125 MG TAB PO SCH ×2 (10:11→22:11)
[2021-04-09 10:24] LABS: Bilirubin,Urine NEG (Negative); Blood,Urine NEG (Negative); Color,Urine Yellow (Yellow); Protein,Urine <15 mg/dL mg/dL (Negative)
[2021-04-09 10:32] LABS: Amphetamine Screen,Urine Negative; Benzodiazepines Screen,Urine Negative; Methadone Screen,Urine Negative; Opiate Screen,Urine Negative
[2021-04-09 11:04] LABS: Cannabinoid Screen,Urine Positive; Cocaine Screen,Urine Positive
[2021-04-09] MEDS ORDERED: AZITHROMYCIN 1 GM ORAL PWDR PACKET PO ONE (13:20)
--- NOTE | 2021-04-09 15:04 | Emergency Department Report ---
ED Psych HPI - General Chief Complaint: Psych Stated Complaint: PSYCH Time Seen by Provider: 04/09/21 07:18 Source: patient Mode of arrival: Ambulatory - History of Present Illness Initial Comments: She is manic. The patient is delusional and bizarre. She is singing and talking loudly. The patient says "I'm crazy and been running around with no sleep." She says "my kids father came to destroy everything I had. They sent him to destroy me." The patient says she hasn't seen a psychiatrist in a long time, but states "every time I'm at peace they send someone to destroy me." When asking the patient was she SI/HI. She says "I brought myself here to keep from doing either one of those." She denies hallucinations of any kind. -: month(s) History of same: No Quality: constant Improves With: none - Related Data Home Medications Medication Instructions Recorded Confirmed Last Taken Hydroxychloroquine [Plaquenil] 200 mg PO BID 03/25/21 03/25/21 03/24/21 Previous Rx's Medication Instructions Recorded Last Taken Type Albuterol Sulfate [Proventil Hfa] 2 puff IH Q4HR PRN #1 hfa.aer.ad 06/10/19 4 Weeks Ago Rx ~02/25/21 Ibuprofen [Motrin 800 MG tab] 800 mg PO Q8HR PRN 7 Days #21 03/25/21 Unknown Rx tablet oxyCODONE /ACETAMINOPHEN [Percocet 2 tab PO Q6H PRN 5 Days #40 tablet 03/25/21 Unknown Rx 5/325 mg] Allergies Allergy/AdvReac Type Severity Reaction Status Date / Time prednisone Allergy Hives Verified 03/23/21 20:15 ED Review of Systems ROS: Stated complaint: PSYCH Other details as noted in HPI Constitutional: denies: chills, fever Eyes: denies: eye pain, eye discharge, vision change ENT: denies: ear pain, throat pain Respiratory: denies: cough, shortness of breath, wheezing Cardiovascular: denies: chest pain, palpitations Endocrine: no symptoms reported Gastrointestinal: denies: abdominal pain, nausea, diarrhea Genitourinary: denies: urgency, dysuria, discharge Musculoskeletal: denies: back pain, joint swelling, arthralgia Skin: denies: rash, lesions Neurological: denies: headache, weakness, paresthesias Psychiatric: denies: anxiety, depression Hematological/Lymphatic: denies: easy bleeding, easy bruising ED Past Medical Hx - Past Medical History Previous Medical History?: Yes Hx Hypertension: No (Borderline Personality disorder, Bipolar) Hx Asthma: Yes Additional medical history: Lupus - Surgical History Past Surgical History?: Yes Additional Surgical History: - Social History Smoking Status: Unknown if ever smoked - Medications Home Medications: Home Medications Medication Instructions Recorded Confirmed Last Taken Type Albuterol Sulfate [Proventil Hfa] 2 puff IH Q4HR PRN #1 hfa.aer.ad 06/10/19 03/25/21 4 Weeks Ago Rx ~02/25/21 Hydroxychloroquine [Plaquenil] 200 mg PO BID 03/25/21 03/25/21 03/24/21 History Ibuprofen [Motrin 800 MG tab] 800 mg PO Q8HR PRN 7 Days #21 03/25/21 Unknown Rx tablet oxyCODONE /ACETAMINOPHEN [Percocet 2 tab PO Q6H PRN 5 Days #40 tablet 03/25/21 Unknown Rx 5/325 mg] ED Physical Exam - General Limitations: No Limitations, Other (psych ) General appearance: alert, in no apparent distress - Head Head exam: Present: atraumatic, normocephalic - Eye Eye exam: Present: normal appearance - ENT ENT exam: Present: mucous membranes moist - Neck Neck exam: Present: normal inspection - Respiratory Respiratory exam: Present: normal lung sounds bilaterally. Absent: respiratory distress - Cardiovascular Cardiovascular Exam: Present: regular rate, normal rhythm. Absent: systolic murmur, diastolic murmur, rubs, gallop - GI/Abdominal GI/Abdominal exam: Present: soft, normal bowel sounds - Extremities Exam Extremities exam: Present: normal inspection - Back Exam Back exam: Present: normal inspection - Neurological Exam Neurological exam: Present: alert, oriented X3 - Psychiatric Psychiatric exam: Present: anxious, manic - Expanded Psychiatric Exam Expanded Focused psych exam: Present: pressured speech, delusional, restlessness, flight of ideas - Skin Skin exam: Present: warm, dry, intact, normal color. Absent: rash ED Course Vital Signs 04/09/21 04/09/21 05:18 12:26 Temperature 98.1 F 98.3 F Pulse Rate 98 H 90 Respiratory 16 18 Rate Blood Pressure 125/90 Blood Pressure 122/80 [Left] O2 Sat by Pulse 100 98 Oximetry ED Medical Decision Making - Lab Data Result diagrams: 04/09/21 08:25 04/09/21 08:25 Critical care attestation.: If time is entered above; I have spent that time in minutes in the direct care of this critically ill patient, excluding procedure time. ED Disposition Clinical Impression: Christine, Psychosis Disposition: [address] [place] [address] Is pt being admited?: No Does the pt Need Aspirin: No Condition: Stable Referrals: PRIMARY CARE, [Primary Care Provider] - 3-5 Days
[2021-04-09] MEDS ORDERED: ZIPRASIDONE MESYLATE 20 MG VIAL IM ONE (15:32)
[2021-04-09] MEDS ORDERED: AZITHROMYCIN 1 GM ORAL PWDR PACKET ONE (16:13)
[2021-04-09] MEDS ORDERED: traZODone 50 MG TAB PO SCH (22:00)
[2021-04-09 22:05] VITALS: BP 101/65
[2021-04-10] MEDS ORDERED: IBUPROFEN 800 MG TAB PO ONE (02:01)
[2021-04-10] MEDS ORDERED: ZIPRASIDONE MESYLATE 20 MG VIAL IM ONE ×2 (07:22)
--- NOTE | 2021-04-10 07:27 | Event Note ---
Patient is agitated. Hyperverbal. She has been destructive to equipment. I immediately ordered Geodon 20 mg. Code pan activated.
[2021-04-10] MEDS ORDERED: LORazepam 2 MG/ML VIAL IM ONE (09:46)
[2021-04-10] MEDS ORDERED: oxyCODONE /ACETAMINOPHEN 5-325MG TAB PO ONE (09:46)
[2021-04-10] MEDS ORDERED: HALOPERIDOL LACTATE 5 MG/1 ML INJ IM ONE (09:52)
[2021-04-10] MEDS ORDERED: LORazepam 2 MG/ML VIAL IM STA (09:52)
--- NOTE | 2021-04-10 10:51 | Progress Note ---
Subjective - Reason for Consult Consult date: 04/10/21 Reason for consult: psychosis - Chief Complaint Chief complaint: The patient was seen this morning, she reports doing well. She states sleep and appetite as good. The patient denies any current suicidal/homicidal ideation and denies hallucinations. REVIEW OF SYSTEMS Constitutional: Negative for weight loss ENT: Negative for stridor Respiratory: Negative for cough or hemoptysis All other systems reviewed and are negative MENTAL STATUS EXAMINATION General Appearance and Behavior: Age appropriate, good hygiene, wearing appropriate clothes. cooperative Cooperation: Cooperative Psychomotor Behavior: Psychomotor normal Mood: "ok" Affect and affective range: congruent with stated mood Thought Process: logical Thought Content: reality oriented Speech: normal Suicidal Ideation: Denies Homicidal Ideation: Denies Hallucinations: Denies Delusions: None elicited Impulse Control: fair Insight and Judgment: Limited insight and good judgment Memory: Limited Attention: attentive Orientation: a/o x 3 Assessment (1) Psychosis Treatment Plan DC 1013 Continue Olanzapine 5mg po daily Continue Depakote DR 125mg po BID Continue Trazodone 50mg po qhs Sitter: per primary Medical: per primary Disposition: Do not recommend acute psychiatric inpatient treatment Will sign off. Thanks Case staffed with Dr. Lion Medications and Allergies Mental Status Exam - Vital signs Last Vital Signs Temp 98.5 F 04/09/21 22:04 Pulse 88 04/09/21 22:04 Resp 17 04/09/21 22:04 BP 101/65 04/09/21 22:04 Pulse Ox 97 04/10/21 04:47
--- NOTE | 2021-04-10 12:09 | Event Note ---
Date: 04/10/21 35-year-old female here with acute psychosis and delusions. She was seen by my colleague and was medically cleared for psychiatric evaluation and placement. Vital signs reviewed and are stable. There were no acute events overnight. Patient was seen by the mental health/psychiatry team today who recommended discharge with outpatient resources.
== END 2021-04-10 12:38 | disposition home or self-care (01) ==
LOC: ED 05:13
DX: F30.9 Manic episode, unspecified (principal); F29 Unspecified psychosis not due to a substance or known physiological condition; J45.909 Unspecified asthma, uncomplicated; Z98.890 Other specified postprocedural states; Z88.8 Allergy status to other drugs, medicaments and biological substances; Z79.899 Other long term (current) drug therapy; Z20.822 Contact with and (suspected) exposure to COVID-19
CPT/HCPCS: 36415; 80048; 80307; 81001; 84703; 85025; 96372; 99284; J2060; J3486; U0003; 80320; G0480

== ENCOUNTER → 2021-04-21 | Emergency (ER) | payer MEDICAID ==
[2021-04-21 18:01] VITALS: BP 110/62
== END ==
LOC: ED 17:56
DX: M54.9 Dorsalgia, unspecified (principal); Z53.21 Procedure and treatment not carried out due to patient leaving prior to being seen by health care provider

== ENCOUNTER 2021-06-10 12:45 | Emergency (ER) | payer MEDICAID ==
[2021-06-10 12:51] VITALS: BP 120/86
== END 2021-06-10 17:09 | disposition left against medical advice (07) ==
LOC: ED 12:45
DX: R10.2 Pelvic and perineal pain (principal); Z53.21 Procedure and treatment not carried out due to patient leaving prior to being seen by health care provider

== ENCOUNTER 2021-07-31 13:09 | Emergency (ER) | payer MEDICAID ==
--- NOTE | 2021-07-31 13:37 | Emergency Department Report ---
ED Psych HPI - General Chief Complaint: Psych Stated Complaint: ATTEMPTED TO STAB HERSELF Time Seen by Provider: 07/31/21 13:27 Source: EMS Mode of arrival: Stretcher - History of Present Illness Initial Comments: 36-year female the past medical history of bipolar disease and lupus presents to the hospital after expressing suicidal ideation at the health department. Patient also has a physical complaint of suprapubic abdominal pain x1 week and nausea vomiting with recent diagnosis. LMP 1 week ago. Patient states she was at [facility] recently and was diagnosed with without ultrasound. She then went to [employer] and paid $20 and was told to come to the health department. She did not pay $10 at the health department and was told to make an appointment to receive her further work-up. Patient became irate because she felt like she needed more emergent medical attention and was being denied. Patient wants to know the status of her uterine fibroids and recently diagnosed ovarian cyst in the setting of her given that she has had abdominal pain x1 week. She also expresses concern for STI. Patient complains of nausea and dysuria. No fever reported. Patient states that she has not been sleeping recently. She is not currently on bipolar medication. While at the health department she became irate and started stabbing himself with a pain. She also pointed to officers weapon and states she wanted him to shoot her. Patient states she has 5 children at home. She refused vital signs in route with EMS but is calm and cooperative upon ED arrival - Related Data Home Medications Medication Instructions Recorded Confirmed Last Taken Hydroxychloroquine [Plaquenil] 200 mg PO BID 03/25/21 03/25/21 03/24/21 Previous Rx's Medication Instructions Recorded Last Taken Type Albuterol Sulfate [Proventil Hfa] 2 puff IH Q4HR PRN #1 hfa.aer.ad 06/10/19 4 W eeks Ago Rx ~02/25/21 Ibuprofen [Motrin 800 MG tab] 800 mg PO Q8HR PRN 7 Days #21 03/25/21 Unknown Rx tablet oxyCODONE /ACETAMINOPHEN [Percocet 2 tab PO Q6H PRN 5 Days #40 tablet 03/25/21 Unknown Rx 5/325 mg] Divalproex Dr [DepaKOTE DR] 125 mg PO BID 30 Days #60 04/10/21 Unknown Rx OLANZapine [Zyprexa] 5 mg PO DAILY 30 Days #30 04/10/21 Unknown Rx traZODone [Desyrel] 50 mg PO QHS 30 Days #30 tab 04/10/21 Unknown Rx Allergies Allergy/AdvReac Type Severity Reaction Status Date / Time prednisone Allergy Hives Verified 06/10/21 12:51 ED Review of Systems ROS: Stated complaint: ATTEMPTED TO STAB HERSELF Other details as noted in HPI Comment: All other systems reviewed and negative ED Past Medical Hx - Past Medical History Hx Hypertension: No (Borderline Personality disorder, Bipolar) Hx Asthma: Yes Additional medical history: Lupus - Surgical History Additional Surgical History: - Social History Smoking Status: Unknown if ever smoked - Medications Home Medications: Home Medications Medication Instructions Recorded Confirmed Last Taken Type Albuterol Sulfate [Proventil Hfa] 2 puff IH Q4HR PRN #1 hfa.aer.ad 06/10/19 03/25/21 4 Weeks Ago Rx ~02/25/21 Hydroxychloroquine [Plaquenil] 200 mg PO BID 03/25/21 03/25/21 03/24/21 History Ibuprofen [Motrin 800 MG tab] 800 mg PO Q8HR PRN 7 Days #21 03/25/21 Unknown Rx tablet oxyCODONE /ACETAMINOPHEN [Percocet 2 tab PO Q6H PRN 5 Days #40 tablet 03/25/21 Unknown Rx 5/325 mg] Divalproex Dr [DepaKOTE DR] 125 mg PO BID 30 Days #60 04/10/21 Unknown Rx OLANZapine [Zyprexa] 5 mg PO DAILY 30 Days #30 04/10/21 Unknown Rx traZODone [Desyrel] 50 mg PO QHS 30 Days #30 tab 04/10/21 Unknown Rx ED Physical Exam - General Limitations: No Limitations - Other Other exam information: General: No acute distress Head: Atraumatic Eyes: normal appearance ENT: Moist mucous membranes Neck: Normal appearance, no midline tenderness Chest: Clear to auscultation bilaterally CV: Regular rate and rhythm Abdomen: Soft, normal bowel sounds, mild suprapubic, nondistended, no rebound or guarding : white d/c, cmt tendernes, mild left right adnexa tenderness Back: Normal inspection Extremity: Normal inspection, full range of motion Neuro: Alert O x 3, no facial asymmetry, speech clear, no gross motor sensory deficit Psych: Tearful, upset, agitated Skin: No rash ED Course Vital Signs 07/31/21 13:26 Temperature 98.1 F Pulse Rate 88 Respiratory 16 Rate Blood Pressure 145/89 [Right] O2 Sat by Pulse 99 Oximetry ED Medical Decision Making - Lab Data Result diagrams: 07/31/21 16:51 07/31/21 16:51 Lab Results 07/31/21 07/31/21 07/31/21 Range/Units 16:51 16:51 16:51 WBC 6.9 (4.5-11.0) K/mm3 RBC 4.13 (3.65-5.03) M/mm3 Hgb 13.0 (10.1-14.3) gm/dl Hct 39.1 (30.3-42.9) % MCV 95 (79-97) fl MCH 32 (28-32) pg MCHC 33 (30-34) % RDW 12.1 L (13.2-15.2) % Plt Count 273 (140-440) K/mm3 Lymph % (Auto) 17.5 (13.4-35.0) % [place] % (Auto) 9.4 H (0.0-7.3) % Eos % (Auto) 0.4 (0.0-4.3) % Baso % (Auto) 0.8 (0.0-1.8) % Lymph # (Auto) 1.2 (1.2-5.4) K/mm3 [place] # (Auto) 0.7 (0.0-0.8) K/mm3 Eos # (Auto) 0.0 (0.0-0.4) K/mm3 Baso # (Auto) 0.1 (0.0-0.1) K/mm3 Seg Neutrophils % 71.9 H (40.0-70.0) % Seg Neutrophils # 5.1 (1.8-7.7) K/mm3 Sodium 137 (137-145) mmol/L Potassium 3.4 L (3.6-5.0) mmol/L Chloride 99.3 (98-107) mmol/L Carbon Dioxide 25 (22-30) mmol/L Anion Gap 16 mmol/L BUN 9 (7-17) mg/dL Creatinine 0.7 (0.6-1.2) mg/dL Estimated GFR > 60 ml/min BUN/Creatinine Ratio 13 % Glucose 116 H (65-100) mg/dL Calcium 9.5 (8.4-10.2) mg/dL Total Bilirubin 0.40 (0.1-1.2) mg/dL AST 15 (5-40) units/L ALT 11 (7-56) units/L Alkaline Phosphatase 72 (35-129) units/L Total Protein 7.6 (6.3-8.2) g/dL Albumin 4.6 (3.9-5) g/dL Albumin/Globulin Ratio 1.5 % HCG, Quant < 2 (0-4) mIU/mL Urine Color (Yellow) Urine Turbidity (Clear) Urine pH (5.0-7.0) Ur Specific [place] (1.003-1.030) Urine Protein (Negative) mg/dL Urine Glucose (UA) (Negative) mg/dL Urine Ketones (Negative) mg/dL Urine Blood (Negative) Urine Nitrite (Negative) Urine Bilirubin (Negative) Urine Urobilinogen (<2.0) mg/dL Ur Leukocyte Esterase (Negative) Urine WBC (Auto) (0.0-6.0) /HPF Urine RBC (Auto) (0.0-6.0) /HPF U Epithel Cells (Auto) (0-13.0) /HPF Urine Mucus /HPF Urine HCG, Qual (Negative) Salicylates (2.8-20.0) mg/dL Urine Opiates Screen Urine Methadone Screen Acetaminophen (10.0-30.0) ug/mL Ur Barbiturates Screen Ur Phencyclidine Scrn Ur Amphetamines Screen U Benzodiazepines Scrn Urine Cocaine Screen U Marijuana (THC) Screen Drugs of Abuse Note Plasma/Serum Alcohol (0-0.07) % 07/31/21 07/31/21 07/31/21 Range/Units 16:51 16:51 16:51 WBC (4.5-11.0) K/mm3 RBC (3.65-5.03) M/mm3 Hgb (10.1-14.3) gm/dl Hct (30.3-42.9) % MCV (79-97) fl MCH (28-32) pg MCHC (30-34) % RDW (13.2-15.2) % Plt Count (140-440) K/mm3 Lymph % (Auto) (13.4-35.0) % [place] % (Auto) (0.0-7.3) % Eos % (Auto) (0.0-4.3) % Baso % (Auto) (0.0-1.8) % Lymph # (Auto) (1.2-5.4) K/mm3 [place] # (Auto) (0.0-0.8) K/mm3 Eos # (Auto) (0.0-0.4) K/mm3 Baso # (Auto) (0.0-0.1) K/mm3 Seg Neutrophils % (40.0-70.0) % Seg Neutrophils # (1.8-7.7) K/mm3 Sodium (137-145) mmol/L Potassium (3.6-5.0) mmol/L Chloride (98-107) mmol/L Carbon Dioxide (22-30) mmol/L Anion Gap mmol/L BUN (7-17) mg/dL Creatinine (0.6-1.2) mg/dL Estimated GFR ml/min BUN/Creatinine Ratio % Glucose (65-100) mg/dL Calcium (8.4-10.2) mg/dL Total Bilirubin (0.1-1.2) mg/dL AST (5-40) units/L ALT (7-56) units/L Alkaline Phosphatase (35-129) units/L Total Protein (6.3-8.2) g/dL Albumin (3.9-5) g/dL Albumin/Globulin Ratio % HCG, Quant (0-4) mIU/mL Urine Color (Yellow) Urine Turbidity (Clear) Urine pH (5.0-7.0) Ur Specific [place] (1.003-1.030) Urine Protein (Negative) mg/dL Urine Glucose (UA) (Negative) mg/dL Urine Ketones (Negative) mg/dL Urine Blood (Negative) Urine Nitrite (Negative) Urine Bilirubin (Negative) Urine Urobilinogen (<2.0) mg/dL Ur Leukocyte Esterase (Negative) Urine WBC (Auto) (0.0-6.0) /HPF Urine RBC (Auto) (0.0-6.0) /HPF U Epithel Cells (Auto) (0-13.0) /HPF Urine Mucus /HPF Urine HCG, Qual (Negative) Salicylates < 0.3 L (2.8-20.0) mg/dL Urine Opiates Screen Urine Methadone Screen Acetaminophen 5.0 L (10.0-30.0) ug/mL Ur Barbiturates Screen Ur Phencyclidine Scrn Ur Amphetamines Screen U Benzodiazepines Scrn Urine Cocaine Screen U Marijuana (THC) Screen Drugs of Abuse Note Plasma/Serum Alcohol < 0.01 (0-0.07) % 07/31/21 07/31/21 07/31/21 Range/Units Unknown Unknown Unknown WBC (4.5-11.0) K/mm3 RBC (3.65-5.03) M/mm3 Hgb (10.1-14.3) gm/dl Hct (30.3-42.9) % MCV (79-97) fl MCH (28-32) pg MCHC (30-34) % RDW (13.2-15.2) % Plt Count (140-440) K/mm3 Lymph % (Auto) (13.4-35.0) % [place] % (Auto) (0.0-7.3) % Eos % (Auto) (0.0-4.3) % Baso % (Auto) (0.0-1.8) % Lymph # (Auto) (1.2-5.4) K/mm3 [place] # (Auto) (0.0-0.8) K/mm3 Eos # (Auto) (0.0-0.4) K/mm3 Baso # (Auto) (0.0-0.1) K/mm3 Seg Neutrophils % (40.0-70.0) % Seg Neutrophils # (1.8-7.7) K/mm3 Sodium (137-145) mmol/L Potassium (3.6-5.0) mmol/L Chloride (98-107) mmol/L Carbon Dioxide (22-30) mmol/L Anion Gap mmol/L BUN (7-17) mg/dL Creatinine (0.6-1.2) mg/dL Estimated GFR ml/min BUN/Creatinine Ratio % Glucose (65-100) mg/dL Calcium (8.4-10.2) mg/dL Total Bilirubin (0.1-1.2) mg/dL AST (5-40) units/L ALT (7-56) units/L Alkaline Phosphatase (35-129) units/L Total Protein (6.3-8.2) g/dL Albumin (3.9-5) g/dL Albumin/Globulin Ratio % HCG, Quant (0-4) mIU/mL Urine Color Yellow (Yellow) Urine Turbidity Clear (Clear) Urine pH 5.0 (5.0-7.0) Ur Specific [place] 1.018 (1.003-1.030) Urine Protein <15 mg/dl (Negative) mg/dL Urine Glucose (UA) Neg (Negative) mg/dL Urine Ketones Neg (Negative) mg/dL Urine Blood Neg (Negative) Urine Nitrite Neg (Negative) Urine Bilirubin Neg (Negative) Urine Urobilinogen 4.0 (<2.0) mg/dL Ur Leukocyte Esterase Neg (Negative) Urine WBC (Auto) 12.0 H (0.0-6.0) /HPF Urine RBC (Auto) 9.0 (0.0-6.0) /HPF U Epithel Cells (Auto) 17.0 H (0-13.0) /HPF Urine Mucus 3+ /HPF Urine HCG, Qual Negative (Negative) Salicylates (2.8-20.0) mg/dL Urine Opiates Screen Negative Urine Methadone Screen Negative Acetaminophen (10.0-30.0) ug/mL Ur Barbiturates Screen Negative Ur Phencyclidine Scrn Positive Ur Amphetamines Screen Negative U Benzodiazepines Scrn Negative Urine Cocaine Screen Negative U Marijuana (THC) Screen Positive Drugs of Abuse Note Disclamer Plasma/Serum Alcohol (0-0.07) % - Medical Decision Making 36-year-old female presents to the hospital complaining of pelvic pain and recent diagnosis of . Patient also complains of nausea secondary to . ED work-up reveals that patient indeed is not . Wet prep has less than 20 clue cells however, since patient does endorse pelvic pain she will be treated with Flagyl for BV and received a dose of Rocephin azithromycin for chlamydia/gonorrhea. GC chlamydia cultures collected and pending. Patient does not have any vaginal bleeding. UTI not suspected given high level of epithelial cells in urine and lack of leukocyte esterase, bacteria, or nitrites. Patient did have episodes of belligerence and combativeness but seemed to calm down when she was fed and showered. As needed medications will be ordered. Mental health consult pending. 1013 has been signed Critical care attestation.: If time is entered above; I have spent that time in minutes in the direct care of this critically ill patient, excluding procedure time. ED Disposition Clinical Impression: Suicidal ideation, Delusion of , Bacterial vaginitis, Hypokalemia, Medical clearance for psychiatric admission, Bipolar disorder Disposition: [address] [place] [address] Is pt being admited?: No Condition: Stable Instructions: Bacterial Vaginosis (ED) Referrals: PRIMARY CARE, [Primary Care Provider] - 3-5 Days Forms: STI Treatment and Prevention
[2021-07-31] MEDS ORDERED: ONDANSETRON 4 MG ODT TAB PO ONE ×2 (14:00→16:39)
[2021-07-31 14:25] LABS: Bilirubin,Urine NEG (Negative); Blood,Urine NEG (Negative); Color,Urine Yellow (Yellow); Mucus,Urine 3+ /HPF; Protein,Urine <15 mg/dL mg/dL (Negative)
[2021-07-31 16:20] LABS: HCG Qualitative,Urine Negative (Negative)
[2021-07-31] MEDS ORDERED: diphenhydrAMINE 50 MG/ML VIAL IV ONE (16:57)
[2021-07-31] MEDS ORDERED: ZIPRASIDONE MESYLATE 20 MG VIAL IM ONE (16:57)
[2021-07-31] MEDS ORDERED: hydrOXYzine PAMOATE 25 MG CAP PO ONE (17:12)
[2021-07-31 17:18] LABS: Amphetamine Screen,Urine Negative; Benzodiazepines Screen,Urine Negative; Cocaine Screen,Urine Negative; Methadone Screen,Urine Negative; Opiate Screen,Urine Negative
[2021-07-31 17:20] LABS: Hematocrit 39.1 % (30.3-42.9); Mean Corpuscular HGB Conc 33 % (30-34); Mean Corpuscular Volume 95 fl (79-97); Platelet Count 273 K/mm3 (140-440); Red Blood Count 4.13 M/mm3 (3.65-5.03); Red Cell Distribution Width 12.1 % (13.2-15.2)
[2021-07-31 17:25] LABS: Basophils # (Auto) 0.1 K/mm3 (0.0-0.1); Basophils % (Auto) 0.8 % (0.0-1.8); Eosinophils % (Auto) 0.4 % (0.0-4.3); Lymphocytes # (Auto) 1.2 K/mm3 (1.2-5.4); Lymphocytes % (Auto) 17.5 % (13.4-35.0); Monocytes # (Auto) 0.7 K/mm3 (0.0-0.8); Monocytes % (Auto) 9.4 % (0.0-7.3)
[2021-07-31 17:29] LABS: Cannabinoid Screen,Urine Positive
[2021-07-31 17:31] LABS: Alanine Aminotransferase 11 units/L (7-56); Albumin 4.6 g/dL (3.9-5); Blood Urea Nitrogen 9 mg/dL (7-17); Calcium 9.5 mg/dL (8.4-10.2); Hemolysis Index 3
[2021-07-31 17:34] LABS: BUN/Creatinine Ratio 13
[2021-07-31] MEDS ORDERED: AZITHROMYCIN 1 GM ORAL PWDR PACKET PO ONE (18:36)
[2021-07-31] MEDS ORDERED: LIDOCAINE-MPF (1%) 10 MG/1 ML VIAL 5 ML INFILTRATI ONE (18:36)
[2021-07-31] MEDS ORDERED: POTASSIUM CHLORIDE ER 20 MEQ TAB PO ONE (18:37)
[2021-07-31] MEDS: metroNIDAZOLE 500 MG TAB PO SCH (22:30)
[2021-08-01] MEDS ORDERED: HALOPERIDOL LACTATE 5 MG/1 ML INJ IM PRN (09:21)
[2021-08-01] MEDS: LORazepam 2 MG/ML VIAL IM PRN (09:57)
--- NOTE | 2021-08-01 10:28 | Consultation ---
History of Present Illness - Reason for Consult Consult date: 08/01/21 Reason for consult: Bipolar - History of Present Psychiatric Illness ED Note: 36-year female the past medical history of bipolar disease and lupus presents to the hospital after expressing suicidal ideation at the health department. Patient also has a physical complaint of suprapubic abdominal pain x1 week and nausea vomiting with recent diagnosis. LMP 1 week ago. Patient states she was at [facility] recently and was diagnosed with without ultrasound. She then went to [employer] and paid $20 and was told to come to the health department. She did not pay $10 at the health department and was told to make an appointment to receive her further work-up. Patient became irate because she felt like she needed more emergent medical attention and was being denied. Patient wants to know the status of her uterine fibroids and recently diagnosed ovarian cyst in the setting of her given that she has had abdominal pain x1 week. She also expresses concern for STI. Patient complains of nausea and dysuria. No fever reported. Patient states that she has not been sleeping recently. She is not currently on bipolar medication. Wh ile at the health department she became irate and started stabbing himself with a pain. She also pointed to officers weapon and states she wanted him to shoot her. Patient states she has 5 children at home. She refused vital signs in route with EMS but is calm and cooperative upon ED arrival The patient was seen today. She was pacing requesting to know if she is " I'm depressed, I think I'm ." The patient is easily irritated, she walks away from this gag writer stating she has been asked the same questions. Unable to assess SI/HI/ AVHs. PAST PSYCHIATRIC HISTORY: PAST MEDICAL HISTORY: unknown Family Psychiatric History: None reported or documented SOCIAL HISTORY REVIEW OF SYSTEMS MENTAL STATUS EXAMINATION G Assessment (1) Bipolar disorder Treatment Plan 1013 Olanzapine 5mg po daily Depakote DR 125mg po BID Trazodone 50mg po qhs Sitter: per primary Medical: per primary Disposition: Recommend acute psychiatric inpatient treatment Will follow. Thanks Case staffed with Dr. Lion Medications and Allergies Medications and Allergies Allergies Allergy/AdvReac Type Severity Reaction Status Date / Time prednisone Allergy Hives Verified 06/10/21 12:51 Home Medications Medication Instructions Recorded Confirmed Last Taken Type Albuterol Sulfate [Proventil Hfa] 2 puff IH Q4HR PRN #1 hfa.aer.ad 06/10/19 03/25/21 4 Weeks Ago Rx ~02/25/21 Hydroxychloroquine [Plaquenil] 200 mg PO BID 03/25/21 03/25/21 03/24/21 History Ibuprofen [Motrin 800 MG tab] 800 mg PO Q8HR PRN 7 Days #21 03/25/21 Unknown Rx tablet oxyCODONE /ACETAMINOPHEN [Percocet 2 tab PO Q6H PRN 5 Days #40 tablet 03/25/21 Unknown Rx 5/325 mg] Divalproex Dr [DepaKOTE DR] 125 mg PO BID 30 Days #60 04/10/21 Unknown Rx OLANZapine [Zyprexa] 5 mg PO DAILY 30 Days #30 04/10/21 Unknown Rx traZODone [Desyrel] 50 mg PO QHS 30 Days #30 tab 04/10/21 Unknown Rx Active Meds: Active Medications Haloperidol Lactate (Haloperidol Lactate 5 Mg/1 Ml Inj) 5 mg IM Q6HR PRN PRN Reason: Agitation Last Admin: 08/01/21 09:58 Dose: 5 mg Lorazepam (Lorazepam 2 Mg/Ml Vial) 2 mg IM Q4HR PRN PRN Reason: Agitation Last Admin: 08/01/21 09:57 Dose: 2 mg Metronidazole (Metronidazole 500 Mg Tab) 500 mg PO BID [facility]; Protocol Stop: 08/05/21 10:01 Last Admin: 07/31/21 22:30 Dose: Not Given Mental Status Exam - Vital signs Last Vital Signs Temp 97.8 F 08/01/21 09:42 Pulse 90 08/01/21 09:42 Resp 20 08/01/21 09:42 BP 120/88 08/01/21 09:42 Pulse Ox 98 08/01/21 09:42 Results Result Diagrams: 07/31/21 16:51 07/31/21 16:51 Abnormal lab results 07/31/21 07/31/21 07/31/21 Range/Units 16:51 16:51 16:51 RDW 12.1 L (13.2-15.2) % [place] % (Auto) 9.4 H (0.0-7.3) % Seg Neutrophils % 71.9 H (40.0-70.0) % Potassium 3.4 L (3.6-5.0) mmol/L Glucose 116 H (65-100) mg/dL Urine WBC (Auto) (0.0-6.0) /HPF U Epithel Cells (Auto) (0-13.0) /HPF Salicylates < 0.3 L (2.8-20.0) mg/dL Acetaminophen (10.0-30.0) ug/mL 07/31/21 07/31/21 Range/Units 16:51 Unknown RDW (13.2-15.2) % [place] % (Auto) (0.0-7.3) % Seg Neutrophils % (40.0-70.0) % Potassium (3.6-5.0) mmol/L Glucose (65-100) mg/dL Urine WBC (Auto) 12.0 H (0.0-6.0) /HPF U Epithel Cells (Auto) 17.0 H (0-13.0) /HPF Salicylates (2.8-20.0) mg/dL Acetaminophen 5.0 L (10.0-30.0) ug/mL All other labs normal.
--- NOTE | 2021-08-01 13:31 | Event Note ---
Date: 08/01/21 The patient was evaluated in the emergency department for symptoms described in the history of present illness. He/she was evaluated in the context of the global COVID-19 pandemic, which necessitated consideration that the patient might be at risk for infection with the virus that causes COVID-19. Institutional protocols and algorithms that pertain to the evaluation of patients at risk for COVID-19 are in a state of rapid change based on information released by regulatory bodies including the CDC and federal and state organizations. These policies and algorithms were followed during the patient's care in the emergency department. Please note that these policies, procedures and recommendations changed on a rapid basis. Laboratory studies, vital signs, nursing documentation, ER documentation, and psychiatric documentation are reviewed and appreciated. Nursing team reports no acute events this morning or concerns. The patient is awake and resting comfortably on stretcher and does not appear to be in any acute distress The patient was deemed medically suitable for psychiatric disposition and placement during her initial ER evaluation. The patient continues to remain medically suitable for psychiatric placement and disposition. She is currently pending psychiatric placement. Vital Signs 07/31/21 07/31/21 07/31/21 13:26 19:59 22:00 Temperature 98.1 F Pulse Rate 88 89 Respiratory 16 18 Rate Blood Pressure 145/89 147/78 [Right] O2 Sat by Pulse 99 100 100 Oximetry 08/01/21 09:42 Temperature 97.8 F Pulse Rate 90 Respiratory 20 Rate Blood Pressure 120/88 [Right] O2 Sat by Pulse 98 Oximetry Lab Results 07/31/21 07/31/21 07/31/21 Range/Units 10:30 16:51 16:51 WBC 6.9 (4.5-11.0) K/mm3 RBC 4.13 (3.65-5.03) M/mm3 Hgb 13.0 (10.1-14.3) gm/dl Hct 39.1 (30.3-42.9) % MCV 95 (79-97) fl MCH 32 (28-32) pg MCHC 33 (30-34) % RDW 12.1 L (13.2-15.2) % Plt Count 273 (140-440) K/mm3 Lymph % (Auto) 17.5 (13.4-35.0) % Davidson % (Auto) 9.4 H (0.0-7.3) % Eos % (Auto) 0.4 (0.0-4.3) % Baso % (Auto) 0.8 (0.0-1.8) % Lymph # (Auto) 1.2 (1.2-5.4) K/mm3 Davidson # (Auto) 0.7 (0.0-0.8) K/mm3 Eos # (Auto) 0.0 (0.0-0.4) K/mm3 Baso # (Auto) 0.1 (0.0-0.1) K/mm3 Seg Neutrophils % 71.9 H (40.0-70.0) % Seg Neutrophils # 5.1 (1.8-7.7) K/mm3 Sodium 137 (137-145) mmol/L Potassium 3.4 L (3.6-5.0) mmol/L Chloride 99.3 (98-107) mmol/L Carbon Dioxide 25 (22-30) mmol/L Anion Gap 16 mmol/L BUN 9 (7-17) mg/dL Creatinine 0.7 (0.6-1.2) mg/dL Estimated GFR > 60 ml/min BUN/Creatinine Ratio 13 % Glucose 116 H (65-100) mg/dL Calcium 9.5 (8.4-10.2) mg/dL Total Bilirubin 0.40 (0.1-1.2) mg/dL AST 15 (5-40) units/L ALT 11 (7-56) units/L Alkaline Phosphatase 72 (35-129) units/L Total Protein 7.6 (6.3-8.2) g/dL Albumin 4.6 (3.9-5) g/dL Albumin/Globulin Ratio 1.5 % HCG, Quant (0-4) mIU/mL Urine Color (Yellow) Urine Turbidity (Clear) Urine pH (5.0-7.0) Ur Specific Hartsel (1.003-1.030) Urine Protein (Negative) mg/dL Urine Glucose (UA) (Negative) mg/dL Urine Ketones (Negative) mg/dL Urine Blood (Negative) Urine Nitrite (Negative) Urine Bilirubin (Negative) Urine Urobilinogen (<2.0) mg/dL Ur Leukocyte Esterase (Negative) Urine WBC (Auto) (0.0-6.0) /HPF Urine RBC (Auto) (0.0-6.0) /HPF U Epithel Cells (Auto) (0-13.0) /HPF Urine Mucus /HPF Urine HCG, Qual (Negative) Salicylates (2.8-20.0) mg/dL Urine Opiates Screen Urine Methadone Screen Acetaminophen (10.0-30.0) ug/mL Ur Barbiturates Screen Ur Phencyclidine Scrn Ur Amphetamines Screen U Benzodiazepines Scrn Urine Cocaine Screen U Marijuana (THC) Screen Drugs of Abuse Note Plasma/Serum Alcohol (0-0.07) % SARS-CoV-2 (PCR) Negative (Negative) 07/31/21 07/31/21 07/31/21 Range/Units 16:51 16:51 16:51 WBC (4.5-11.0) K/mm3 RBC (3.65-5.03) M/mm3 Hgb (10.1-14.3) gm/dl Hct (30.3-42.9) % MCV (79-97) fl MCH (28-32) pg MCHC (30-34) % RDW (13.2-15.2) % Plt Count (140-440) K/mm3 Lymph % (Auto) (13.4-35.0) % Davidson % (Auto) (0.0-7.3) % Eos % (Auto) (0.0-4.3) % Baso % (Auto) (0.0-1.8) % Lymph # (Auto) (1.2-5.4) K/mm3 Davidson # (Auto) (0.0-0.8) K/mm3 Eos # (Auto) (0.0-0.4) K/mm3 Baso # (Auto) (0.0-0.1) K/mm3 Seg Neutrophils % (40.0-70.0) % Seg Neutrophils # (1.8-7.7) K/mm3 Sodium (137-145) mmol/L Potassium (3.6-5.0) mmol/L Chloride (98-107) mmol/L Carbon Dioxide (22-30) mmol/L Anion Gap mmol/L BUN (7-17) mg/dL Creatinine (0.6-1.2) mg/dL Estimated GFR ml/min BUN/Creatinine Ratio % Glucose (65-100) mg/dL Calcium (8.4-10.2) mg/dL Total Bilirubin (0.1-1.2) mg/dL AST (5-40) units/L ALT (7-56) units/L Alkaline Phosphatase (35-129) units/L Total Protein (6.3-8.2) g/dL Albumin (3.9-5) g/dL Albumin/Globulin Ratio % HCG, Quant < 2 (0-4) mIU/mL Urine Color (Yellow) Urine Turbidity (Clear) Urine pH (5.0-7.0) Ur Specific Hartsel (1.003-1.030) Urine Protein (Negative) mg/dL Urine Glucose (UA) (Negative) mg/dL Urine Ketones (Negative) mg/dL Urine Blood (Negative) Urine Nitrite (Negative) Urine Bilirubin (Negative) Urine Urobilinogen (<2.0) mg/dL Ur Leukocyte Esterase (Negative) Urine WBC (Auto) (0.0-6.0) /HPF Urine RBC (Auto) (0.0-6.0) /HPF U Epithel Cells (Auto) (0-13.0) /HPF Urine Mucus /HPF Urine HCG, Qual (Negative) Salicylates < 0.3 L (2.8-20.0) mg/dL Urine Opiates Screen Urine Methadone Screen Acetaminophen 5.0 L (10.0-30.0) ug/mL Ur Barbiturates Screen Ur Phencyclidine Scrn Ur Amphetamines Screen U Benzodiazepines Scrn Urine Cocaine Screen U Marijuana (THC) Screen Drugs of Abuse Note Plasma/Serum Alcohol (0-0.07) % SARS-CoV-2 (PCR) (Negative) 07/31/21 07/31/21 07/31/21 Range/Units 16:51 Unknown Unknown WBC (4.5-11.0) K/mm3 RBC (3.65-5.03) M/mm3 Hgb (10.1-14.3) gm/dl Hct (30.3-42.9) % MCV (79-97) fl MCH (28-32) pg MCHC (30-34) % RDW (13.2-15.2) % Plt Count (140-440) K/mm3 Lymph % (Auto) (13.4-35.0) % Davidson % (Auto) (0.0-7.3) % Eos % (Auto) (0.0-4.3) % Baso % (Auto) (0.0-1.8) % Lymph # (Auto) (1.2-5.4) K/mm3 Davidson # (Auto) (0.0-0.8) K/mm3 Eos # (Auto) (0.0-0.4) K/mm3 Baso # (Auto) (0.0-0.1) K/mm3 Seg Neutrophils % (40.0-70.0) % Seg Neutrophils # (1.8-7.7) K/mm3 Sodium (137-145) mmol/L Potassium (3.6-5.0) mmol/L Chloride (98-107) mmol/L Carbon Dioxide (22-30) mmol/L Anion Gap mmol/L BUN (7-17) mg/dL Creatinine (0.6-1.2) mg/dL Estimated GFR ml/min BUN/Creatinine Ratio % Glucose (65-100) mg/dL Calcium (8.4-10.2) mg/dL Total Bilirubin (0.1-1.2) mg/dL AST (5-40) units/L ALT (7-56) units/L Alkaline Phosphatase (35-129) units/L Total Protein (6.3-8.2) g/dL Albumin (3.9-5) g/dL Albumin/Globulin Ratio % HCG, Quant (0-4) mIU/mL Urine Color Yellow (Yellow) Urine Turbidity Clear (Clear) Urine pH 5.0 (5.0-7.0) Ur Specific Hartsel 1.018 (1.003-1.030) Urine Protein <15 mg/dl (Negative) mg/dL Urine Glucose (UA) Neg (Negative) mg/dL Urine Ketones Neg (Negative) mg/dL Urine Blood Neg (Negative) Urine Nitrite Neg (Negative) Urine Bilirubin Neg (Negative) Urine Urobilinogen 4.0 (<2.0) mg/dL Ur Leukocyte Esterase Neg (Negative) Urine WBC (Auto) 12.0 H (0.0-6.0) /HPF Urine RBC (Auto) 9.0 (0.0-6.0) /HPF U Epithel Cells (Auto) 17.0 H (0-13.0) /HPF Urine Mucus 3+ /HPF Urine HCG, Qual Negative (Negative) Salicylates (2.8-20.0) mg/dL Urine Opiates Screen Urine Methadone Screen Acetaminophen (10.0-30.0) ug/mL Ur Barbiturates Screen Ur Phencyclidine Scrn Ur Amphetamines Screen U Benzodiazepines Scrn Urine Cocaine Screen U Marijuana (THC) Screen Drugs of Abuse Note Plasma/Serum Alcohol < 0.01 (0-0.07) % SARS-CoV-2 (PCR) (Negative) 07/31/21 Range/Units Unknown WBC (4.5-11.0) K/mm3 RBC (3.65-5.03) M/mm3 Hgb (10.1-14.3) gm/dl Hct (30.3-42.9) % MCV (79-97) fl MCH (28-32) pg MCHC (30-34) % RDW (13.2-15.2) % Plt Count (140-440) K/mm3 Lymph % (Auto) (13.4-35.0) % Davidson % (Auto) (0.0-7.3) % Eos % (Auto) (0.0-4.3) % Baso % (Auto) (0.0-1.8) % Lymph # (Auto) (1.2-5.4) K/mm3 Davidson # (Auto) (0.0-0.8) K/mm3 Eos # (Auto) (0.0-0.4) K/mm3 Baso # (Auto) (0.0-0.1) K/mm3 Seg Neutrophils % (40.0-70.0) % Seg Neutrophils # (1.8-7.7) K/mm3 Sodium (137-145) mmol/L Potassium (3.6-5.0) mmol/L Chloride (98-107) mmol/L Carbon Dioxide (22-30) mmol/L Anion Gap mmol/L BUN (7-17) mg/dL Creatinine (0.6-1.2) mg/dL Estimated GFR ml/min BUN/Creatinine Ratio % Glucose (65-100) mg/dL Calcium (8.4-10.2) mg/dL Total Bilirubin (0.1-1.2) mg/dL AST (5-40) units/L ALT (7-56) units/L Alkaline Phosphatase (35-129) units/L Total Protein (6.3-8.2) g/dL Albumin (3.9-5) g/dL Albumin/Globulin Ratio % HCG, Quant (0-4) mIU/mL Urine Color (Yellow) Urine Turbidity (Clear) Urine pH (5.0-7.0) Ur Specific Hartsel (1.003-1.030) Urine Protein (Negative) mg/dL Urine Glucose (UA) (Negative) mg/dL Urine Ketones (Negative) mg/dL Urine Blood (Negative) Urine Nitrite (Negative) Urine Bilirubin (Negative) Urine Urobilinogen (<2.0) mg/dL Ur Leukocyte Esterase (Negative) Urine WBC (Auto) (0.0-6.0) /HPF Urine RBC (Auto) (0.0-6.0) /HPF U Epithel Cells (Auto) (0-13.0) /HPF Urine Mucus /HPF Urine HCG, Qual (Negative) Salicylates (2.8-20.0) mg/dL Urine Opiates Screen Negative Urine Methadone Screen Negative Acetaminophen (10.0-30.0) ug/mL Ur Barbiturates Screen Negative Ur Phencyclidine Scrn Positive Ur Amphetamines Screen Negative U Benzodiazepines Scrn Negative Urine Cocaine Screen Negative U Marijuana (THC) Screen Positive Drugs of Abuse Note Disclamer Plasma/Serum Alcohol (0-0.07) % SARS-CoV-2 (PCR) (Negative)
[2021-08-01] MEDS: DIVALPROEX DR 125 MG TAB PO SCH ×2 (15:22→22:00)
[2021-08-01] MEDS: metroNIDAZOLE 500 MG TAB PO SCH ×2 (15:22→23:00)
[2021-08-01] MEDS ORDERED: traZODone 50 MG TAB PO SCH (22:00)
[2021-08-02] MEDS: LORazepam 2 MG/ML VIAL IM PRN (05:00)
[2021-08-02] MEDS ORDERED: LIP THERAPY VASELINE TP PRN (08:12)
--- NOTE | 2021-08-02 10:12 | Progress Note ---
Subjective - Reason for Consult Consult date: 08/02/21 Reason for consult: suicidal - Chief Complaint Chief complaint: The patient was seen this morning. She is calm, alert and oriented x3. She reports doing well. The patient denies any current suicidal/homicidal ideation and denies hallucination. REVIEW OF SYSTEMS Constitutional: Negative for weight loss ENT: Negative for stridor Respiratory: Negative for cough or hemoptysis All other systems reviewed and are negative MENTAL STATUS EXAMINATION General Appearance and Behavior: Age appropriate, good hygiene, wearing appropriate clothes. cooperative Cooperation: Cooperative Psychomotor Behavior: Psychomotor normal Mood: Ok Affect and affective range: congruent Thought Process: Goal directed Thought Content: reality oriented Speech: Normal Suicidal Ideation: Denies Homicidal Ideation: Denies Hallucinations: Denies Delusions: None elicited Impulse Control: Normal Insight and Judgment: Limited insight and judgment Memory: Limited Attention: attentive Orientation: a/o x 3 Assessment (1) Bipolar disorder Treatment Plan Dc 1013 Continue Olanzapine 5mg po daily Continue Depakote DR 125mg po BID Continue Trazodone 50mg po qhs Sitter: per primary Medical: per primary Disposition: Do not recommend acute psychiatric inpatient treatment. [facility] w mike provide patient with psychiatric outpatient resources Will sign off. Thanks Case staffed with Dr. Lion Medications and Allergies Mental Status Exam - Vital signs Last Vital Signs Temp 98.2 F 08/01/21 20:34 Pulse 77 08/01/21 20:34 Resp 16 08/01/21 20:34 BP 99/60 08/01/21 20:34 Pulse Ox 97 08/01/21 20:34
[2021-08-02] MEDS: metroNIDAZOLE 500 MG TAB PO SCH (10:49)
[2021-08-02] MEDS: DIVALPROEX DR 125 MG TAB PO SCH (10:49)
[2021-08-02] MEDS ORDERED: IBUPROFEN 800 MG TAB PO ONE (11:30)
[2021-08-02 12:21] VITALS: BP 118/80
== END 2021-08-02 12:21 | disposition home or self-care (01) ==
LOC: ED 13:09
DX: R45.851 Suicidal ideations (principal); N76.0 Acute vaginitis; E87.6 Hypokalemia; Z13.30 Encounter for screening examination for mental health and behavioral disorders, unspecified; F31.9 Bipolar disorder, unspecified; Z20.822 Contact with and (suspected) exposure to COVID-19
CPT/HCPCS: 36415; 80053; 80307; 81001; 81025; 84702; 85025; 87086; 87210; 87591; 96372; 99285; J1630; J2060; U0003; 80320; J3490; G0480; Q0162

== ENCOUNTER 2021-11-12 12:12 | Emergency (ER) | payer MEDICAID ==
[2021-11-12] MEDS ORDERED: HYDROXYCHLOROQUINE 200 MG TAB PO ONE (18:23)
[2021-11-12] MEDS ORDERED: MORPHINE 4 MG/1 ML INJ IV ONE ×2 (18:23→21:37)
[2021-11-12] MEDS ORDERED: SODIUM CHLORIDE 0.9% 1000 ML 1,000 ML IV ONE (18:24)
--- NOTE | 2021-11-12 18:25 | Emergency Department Report ---
ED Syncope HPI - General Chief Complaint: Syncope Stated Complaint: LUPUS FLARE UP Time Seen by Provider: 11/12/21 18:05 Source: patient - History of Present Illness Initial Comments: 86-year-old female with history of borderline personality disorder, bipolar disorder, lupus, and asthma presents to the emergency department complaining of which she believes is a lupus flare for 3 days. - Related Data Allergies/Adverse Reactions: Allergies prednisone Allergy (Verified 11/12/21 12:46) Hives Home Medications: Ambulatory Orders Albuterol Sulfate [Proventil Hfa] 2 puff IH Q4HR PRN #1 hfa.aer.ad 06/10/19 Hydroxychloroquine [Plaquenil] 200 mg PO BID 03/25/21 Ibuprofen [Motrin 800 MG tab] 800 mg PO Q8HR PRN 7 Days #21 tablet 03/25/21 oxyCODONE /ACETAMINOPHEN [Percocet 5/325 mg] 2 tab PO Q6H PRN 5 Days #40 tablet 03/25/21 Divalproex [Kristine SALDANA] 125 mg PO BID 30 Days #60 04/10/21 OLANZapine [Zyprexa] 5 mg PO DAILY 30 Days #30 04/10/21 traZODone [Desyrel] 50 mg PO QHS 30 Days #30 tab 04/10/21 Divalproex [Kristine SALDANA] 125 mg PO BID 30 Days #60 tablet 08/02/21 Ibuprofen [Motrin] 800 mg PO Q8HR PRN #20 tablet 08/02/21 OLANzapine [ZyPREXA] 5 mg PO QDAY 30 Days #30 tablet 08/02/21 traZODone [Desyrel] 50 mg PO QHS 30 Days #30 tab 08/02/21 Hydroxychloroquine [Plaquenil] 200 mg PO BID #60 11/12/21 Ibuprofen [Motrin] 600 mg PO Q8H PRN #20 tablet 11/12/21 Oxycodone HCl/Acetaminophen [Percocet 7.5/325 mg] 1 each PO Q6HR PRN #12 11/12/21 ED Review of Systems ROS: Stated complaint: LUPUS FLARE UP Other details as noted in HPI ED Past Medical Hx - Past Medical History Hx Hypertension: No (Borderline Personality disorder, Bipolar) Hx Asthma: Yes Additional medical history: Lupus - Surgical History Additional Surgical History: - Social History Smoking Status: Current Every Day Smoker Substance Use Type: None - Medications Home Medications: Home Medications Medication Instructions Recorded Confirmed Last Taken Type Albuterol Sulfate [Proventil Hfa] 2 puff IH Q4HR PRN #1 hfa.aer.ad 06/10/19 03/25/21 4 Weeks Ago Rx ~02/25/21 Hydroxychloroquine [Plaquenil] 200 mg PO BID 03/25/21 03/25/21 03/24/21 History Ibuprofen [Motrin 800 MG tab] 800 mg PO Q8HR PRN 7 Days #21 03/25/21 Unknown Rx tablet oxyCODONE /ACETAMINOPHEN [Percocet 2 tab PO Q6H PRN 5 Days #40 tablet 03/25/21 Unknown Rx 5/325 mg] Divalproex Dr [Kristine SALDANA] 125 mg PO BID 30 Days #60 04/10/21 Unknown Rx OLANZapine [Zyprexa] 5 mg PO DAILY 30 Days #30 04/10/21 Unknown Rx traZODone [Desyrel] 50 mg PO QHS 30 Days #30 tab 04/10/[address] [Kristine SALDANA] 125 mg PO BID 30 Days #60 tablet 08/02/21 Unknown Rx Ibuprofen [Motrin] 800 mg PO Q8HR PRN #20 tablet 08/02/21 Unknown Rx OLANzapine [ZyPREXA] 5 mg PO QDAY 30 Days #30 tablet 08/02/21 Unknown Rx traZODone [Desyrel] 50 mg PO QHS 30 Days #30 tab 08/02/21 Unknown Rx Hydroxychloroquine [Plaquenil] 200 mg PO BID #60 11/12/21 Unknown Rx Ibuprofen [Motrin] 600 mg PO Q8H PRN #20 tablet 11/12/21 Unknown Rx Oxycodone HCl/Acetaminophen 1 each PO Q6HR PRN #12 11/12/21 Unknown Rx [Percocet 7.5/325 mg] ED Physical Exam - General Limitations: No Limitations ED Course Vital Signs 11/12/21 11/12/21 11/12/21 12:45 18:46 18:49 Temperature 98.9 F Pulse Rate 79 90 Respiratory 18 18 Rate Blood Pressure 134/88 141/90 [Left] O2 Sat by Pulse 99 99 99 Oximetry ED Medical Decision Making - Lab Data Result diagrams: 11/12/21 20:09 11/12/21 20:09 Critical care attestation.: If time is entered above; I have spent that time in minutes in the direct care of this critically ill patient, excluding procedure time. ED Disposition Clinical Impression: Lupus Syncope Qualifiers: Syncope type: unspecified Qualified Code(s): R55 - Syncope and collapse Disposition: 01 HOME / SELF CARE / HOMELESS Is pt being admited?: No Does the pt Need Aspirin: No Condition: Stable Instructions: Syncope (ED), Syncope, Systemic Lupus Erythematosus, Adult Prescriptions: Ibuprofen [Motrin] 600 mg PO Q8H PRN #20 tablet PRN Reason: Pain Oxycodone HCl/Acetaminophen [Percocet 7.5/325 mg] 1 each PO Q6HR PRN #12 PRN Reason: Pain Hydroxychloroquine [Plaquenil] 200 mg PO BID #60 Time of Disposition: 21:48
[2021-11-12 20:27] LABS: Basophils % (Auto) 0.7 % (0.0-1.8); Eosinophils # (Auto) 0.1 K/mm3 (0.0-0.4); Eosinophils % (Auto) 1.4 % (0.0-4.3); Hematocrit 40.5 % (30.3-42.9); Hemoglobin 13.9 gm/dl (10.1-14.3); Lymphocytes # (Auto) 1.1 K/mm3 (1.2-5.4); Mean Corpuscular HGB Conc 34 % (30-34); Mean Corpuscular Volume 95 fl (79-97); Monocytes # (Auto) 0.6 K/mm3 (0.0-0.8); Monocytes % (Auto) 9.2 % (0.0-7.3); Platelet Count 276 K/mm3 (140-440); Red Blood Count 4.27 M/mm3 (3.65-5.03); Red Cell Distribution Width 12.1 % (13.2-15.2)
[2021-11-12 20:37] LABS: INR 0.92 (0.87-1.13)
[2021-11-12 20:48] LABS: Alanine Aminotransferase 8 units/L (7-56); Albumin 4.1 g/dL (3.9-5); Blood Urea Nitrogen 15 mg/dL (7-17); Calcium 8.6 mg/dL (8.4-10.2); Hemolysis Index 12
[2021-11-12 20:58] LABS: BUN/Creatinine Ratio 25
[2021-11-12] MEDS ORDERED: KETOROLAC 30 MG/1 ML INJ IV ONE (21:37)
[2021-11-12 22:00] VITALS: BP 100/65
--- NOTE | 2021-11-13 08:56 | Electrocardiograph Report ---
[facility] Test Date: 2021-11-12 Test Time: 12:44:01 Pat Name: MASON ORTIZ Department: Room: Gender: F Basket Filler: KORI : 1985 Requested By: ED DOC Order Number: [id number] Reading MD: Zi Roland Measurements Intervals [place] Rate: 76 P: 58 UT: 139 QRS: 50 QRSD: 72 T: 35 QT: 387 QTc: 437 Interpretive Statements Sinus rhythm Compared to ECG 03/24/2021 00:58:50 No significant changes Electronically Signed On 11-13-2021 8:55:47 EDT by Zi Roland
== END 2021-11-12 22:01 | disposition home or self-care (01) ==
LOC: ED 12:12
DX: M32.9 Systemic lupus erythematosus, unspecified (principal); R55 Syncope and collapse; J45.909 Unspecified asthma, uncomplicated; F17.200 Nicotine dependence, unspecified, uncomplicated
CPT/HCPCS: 36415; 80053; 84484; 85025; 85610; 93005; 96361; 96374; 96375; 96376; 99283; J1885; J2270; J7030